=== PATIENT | male | born 1950 | race Caucasian/White ===

== ENCOUNTER 2019-09-22 14:03 | Inpatient (IN) | payer MEDICARE, BC ==
--- NOTE | 2019-09-22 14:53 | ED ---
Arrhythmia/Palpitations HPI - General Chief Complaint: Arrhythmia/Palpitations Stated Complaint: Irregular heartbeat Time Seen by Provider: 09/22/19 14:11 Source: patient, EMS, RN notes reviewed, old records reviewed Mode of arrival: EMS Limitations: no limitations - History of Present Illness Initial Comments: Patient 69-year-old male as a transfer from [facility]. Patient was emergently seeing at his PCPs office today for gallbladder pain,, Patient a rapid heart rate. Patient had an EKG at that time which showed likely atrial flutter and heart rate of 160 bpm. Patient reports that he was having some nausea and heartburn for a few months. Patient reports that he has no palpitations chest pain or pressure. He reports that while [facility] also he was placed on IV drip of Cardizem drip and placed on heparin for findings and elevated troponin. Patient's troponin was 0.049. Patient denies any shortness of breath. Patient's production tester is Dr. Farah. - Related Data Home Medications Medication Instructions Recorded Confirmed Apremilast [Otezla] 30 mg PO BID 09/22/19 09/22/19 Aspirin 325 mg PO DAILY 09/22/19 09/22/19 Atorvastatin Calcium [Lipitor] 80 mg PO DAILY 09/22/19 09/22/19 Dapagliflozin Propanediol [Farxiga] 5 mg PO DAILY 09/22/19 09/22/19 Gemfibrozil [Lopid] 600 mg PO AC-BID 09/22/19 09/22/19 Ibuprofen [Motrin] 800 mg PO TID 09/22/19 09/22/19 Insulin Aspart [NovoLOG Flexpen] See Protocol SQ ACHS 09/22/19 09/22/19 Insulin Degludec [Tresiba] 50 units SQ HS 09/22/19 09/22/19 Lisinopril [Zestril] 5 mg PO HS 09/22/19 09/22/19 Metoprolol Tartrate [Lopressor] 25 mg PO BID 09/22/19 09/22/19 metFORMIN HCL 1,000 mg PO BID 09/22/19 09/22/19 Allergies Allergy/AdvReac Type Severity Reaction Status Date / Time ciprofloxacin [From Cipro] Allergy Rash/Hives Verified 09/22/19 14:39 Review of Systems ROS Statement: Those systems with pertinent positive or pertinent negative responses have been documented in the HPI. ROS Other: All systems not noted in ROS Statement are negative. Past Medical History Past Medical History: Diabetes Mellitus, Hypertension, Myocardial Infarction ([place]), Osteoarthritis (OA), Skin Disorder Additional Past Medical History / Comment(s): Psorasis. History of Any Multi-Drug Resistant Organisms: None Reported Past Surgical History: Heart Catheterization With Stent, Hernia Repair, Joint Replacement, Orthopedic Surgery Smoking Status: Former smoker Past Alcohol Use History: Occasional Past Drug Use History: None Reported General Exam - General Exam Comments Initial Comments: Pleasant alert and oriented 69-year-old male. No distress. Limitations: no limitations General appearance: alert, in no apparent distress Head exam: Present: atraumatic, normocephalic, normal inspection Eye exam: Present: normal appearance, PERRL, EOMI. Absent: scleral icterus, conjunctival injection, periorbital swelling ENT exam: Present: normal exam, mucous membranes moist Neck exam: Present: normal inspection. Absent: tenderness, meningismus, lymphadenopathy Respiratory exam: Present: normal lung sounds bilaterally. Absent: respiratory distress, wheezes, rales, rhonchi, stridor Cardiovascular Exam: Present: regular rate, normal rhythm, normal heart sounds. Absent: systolic murmur, diastolic murmur, rubs, gallop, clicks Extremities exam: Present: normal inspection, full ROM, normal capillary refill. Absent: tenderness, pedal edema, joint swelling, calf tenderness Back exam: Present: normal inspection Neurological exam: Present: alert, oriented X3, CN II-XII intact Psychiatric exam: Present: normal affect, normal mood Course Vital Signs 09/22/19 09/22/19 14:06 14:28 Temperature 97.4 F L Pulse Rate 54 L 108 H Respiratory 18 Rate Blood Pressure 113/67 O2 Sat by Pulse 98 Oximetry - Reevaluation(s) Reevaluation #1: 09/22/19 14:52 Discussed the case with Eulalia Huerta NP and Dr. Farah evaluated Patient at bedside at this time. Medical Decision Making - Medical Decision Making This is a 69-year-old male presents emergency Department stay for transfer [facility] after being found in a flutter. 160. He was also elevated troponin 0.049. Patient was placed on Cardizem drip and heparin drip. Patient case was discussed at bedside with Dr. Wong was urged by Patient. Planning cardiac cath tomorrow. - Lab Data Result diagrams: 09/22/19 15:18 Lab Results 09/22/19 Range/Units 15:18 WBC 8.4 (3.8-10.6) k/uL RBC 5.38 (4.30-5.90) m/uL Hgb 16.4 (13.0-17.5) gm/dL Hct 48.8 (39.0-53.0) % MCV 90.7 (80.0-100.0) fL MCH 30.5 (25.0-35.0) pg MCHC 33.6 (31.0-37.0) g/dL RDW 13.9 (11.5-15.5) % Plt Count 196 (150-450) k/uL Neutrophils % 71 % Lymphocytes % 19 % Monocytes % 5 % Eosinophils % 1 % Basophils % 1 % Neutrophils # 6.0 (1.3-7.7) k/uL Lymphocytes # 1.6 (1.0-4.8) k/uL Monocytes # 0.4 (0-1.0) k/uL Eosinophils # 0.1 (0-0.7) k/uL Basophils # 0.1 (0-0.2) k/uL 09/22/19 15:36 EKG shows atrial flutter with come peeling junctional pacemaker with premature ventricular delay. 2 of Remeron consider lateral ischemia. Abnormal EKG noted. Ventricular rate 85 bpm. MT interval is undetected. She catholic is 78 ms. - Radiology Data Radiology results: report reviewed (Patient's [facility] chest x-ray report shows accentuation of interstitial markings in both lung bases indicative of interstitial edema and a consultation changes. Follow-up changes recommended. Abrupt and administration of the left clavicle consistent with prior surgical intervention.Findings compared old exam. X-rays of left shoulder junk be performed for further evaluation.) Disposition Clinical Impression: Atrial flutter, NSTEMI (non-ST elevation myocardial infarction) Disposition: ADMITTED IP TO THIS HOSP Condition: Stable Is patient prescribed a controlled substance at d/c from ED?: No Referrals: Danny Fernández MD [Primary Care Provider] - 1-2 days Time of Disposition: 15:39
[2019-09-22] MEDS ORDERED: HEPARIN SODIUM,PORCINE 5,000 UNIT/ML 1 ML VIAL IV PRN (15:14)
[2019-09-22] MEDS ORDERED: HEPARIN SOD,PORK IN 0.45% NACL 25,000 UNIT in 0.45% NACL 1 250ML.BAG IV SCH (15:15)
[2019-09-22] MEDS ORDERED: ASPIRIN 81 MG PO STA (15:22)
--- NOTE | 2019-09-22 15:22 | P.CRDCN ---
History of Present Illness Consult date: 09/22/19 Requesting physician: Phillip Urbina Chief complaint: Heartburn History of present illness: This is a pleasant 69-year-old gentleman who follows regularly with Dr. Wong in the office. He has history of hypertension, hyperlipidemia, diabetes, prior stenting of the RCA in 2010 at which time the patient was experiencing episodes of diaphoresis. He states that recently he's been getting these spells where he feels quite diaphoretic and he is also been getting symptoms that reminded him of heartburn. He went to see his primary care doctor because of the heartburn, thinking it may be related to his gallbladder. Underwent an EKG while he was there, was found to be in atrial flutter with rapid ventricular response. Patient also had some associated nausea. At [facility] patient was initiated on IV Cardizem and IV heparin drips. Chest x-ray was performed there which showed attenuation of interstitial markings in both lungs indicative of interstitial edema and decompensation changes. Initial EKG performed there showed atrial flutter with rapid ventricular response, at the time of my examination. The emergency room patient is currently in atrial fibrillation with a heart rate in the 90s. His IV Cardizem and IV heparin on arrival to the emergency room were discontinued, and she spoke with the PDA, advising those to be resumed. Laboratory data from [facility], white blood cell count 7.4, hemoglobin 17.1, platelet count 189. Initial troponin there was 0.049, TSH 2.3, sodium 140, potassium 3.8, chloride 106, CO2 22, BUN 17 and creatinine 0.7. AST 20, ALT 21, alk phos 80, total bilirubin 0.5, albumin 4.3. At the time of my examination, patient actually feels well, he denies any palpitations, no chest discomfort or heartburn at present, no dizziness or lightheadedness. His breathing is overall stable and at this present time he is not diaphoretic. Past Medical History Past Medical History: Diabetes Mellitus, Hypertension, Myocardial Infarction ([place]), Osteoarthritis (OA), Skin Disorder Additional Past Medical History / Comment(s): Psorasis. History of Any Multi-Drug Resistant Organisms: None Reported Past Surgical History: Heart Catheterization With Stent, Hernia Repair, Joint Replacement, Orthopedic Surgery Smoking Status: Former smoker Past Alcohol Use History: Occasional Past Drug Use History: None Reported Medications and Allergies Home Medications Medication Instructions Recorded Confirmed Type Apremilast [Otezla] 30 mg PO BID 09/22/19 09/22/19 History Aspirin 325 mg PO DAILY 09/22/19 09/22/19 History Atorvastatin Calcium [Lipitor] 80 mg PO DAILY 09/22/19 09/22/19 History Dapagliflozin Propanediol [Farxiga] 5 mg PO DAILY 09/22/19 09/22/19 History Gemfibrozil [Lopid] 600 mg PO AC-BID 09/22/19 09/22/19 History Ibuprofen [Motrin] 800 mg PO TID 09/22/19 09/22/19 History Insulin Aspart [NovoLOG Flexpen] See Protocol SQ ACHS 09/22/19 09/22/19 History Insulin Degludec [Tresiba] 50 units SQ HS 09/22/19 09/22/19 History Lisinopril [Zestril] 5 mg PO HS 09/22/19 09/22/19 History Metoprolol Tartrate [Lopressor] 25 mg PO BID 09/22/19 09/22/19 History metFORMIN HCL 1,000 mg PO BID 09/22/19 09/22/19 History Allergies Allergy/AdvReac Type Severity Reaction Status Date / Time ciprofloxacin [From Cipro] Allergy Rash/Hives Verified 09/22/19 14:39 Physical Exam Vitals: Vital Signs Temp Pulse Resp BP Pulse Ox 09/22/19 14:28 108 H 09/22/19 14:06 97.4 F L 54 L 18 113/67 98 Intake and Output 09/22/19 09/22/19 09/22/19 06:59 14:59 22:59 Other: Weight 95.254 kg PHYSICAL EXAMINATION: GENERAL: 69-year-old gentleman in no acute distress at the time of my examination HEENT: Head is atraumatic, normocephalic. Pupils equal, round. Sclera anicteric. Conjunctiva are clear. Mucous membranes of the mouth are moist. Neck is supple. There is no elevated jugular venous pressure. No carotid bruit is heard. HEART EXAMINATION: Heart S1, S2 normal. No murmur or gallop heard. CHEST EXAMINATION: Lungs are clear to auscultation and precussion. No chest wall tenderness is noted on palpation or with deep breathing. ABDOMEN: Soft, nontender. Bowel sounds are heard. No organomegaly noted. EXTREMITIES: 2+ peripheral pulses with no evidence of peripheral edema and no calf tenderness noted. NEUROLOGIC patient is awake, alert and oriented 3 . . Results Intake and Output 09/22/19 09/22/19 09/22/19 06:59 14:59 22:59 Other: Weight 95.254 kg Patient Weight 09/23/19 06:59 Weight 95.254 kg EKG Interpretations (text) Initial EKG shows atrial flutter with rapid ventricular response Subsequent EKG performed at [facility] showed A. fib with RVR. Assessment and Plan Plan: Assessment and plan #1 symptoms of recurrent heartburn with associated diaphoresis, rule out possible acute coronary syndrome. Initial troponin performed at [facility] came back abnormal at 0.049. #2 new-onset atrial flutter, typical, as well as atrial fibrillation with rapid ventricular response #3 hypertension #4 hyperlipidemia #5 diabetes #6 coronary artery disease with prior RCA stenting in 2010 #7 history of nicotine dependence Plan We will obtain an echocardiogram with Doppler study. We will also resume the IV heparin and Cardizem drips. Place the patient on a baby aspirin, Lipitor 80, li sinopril 5 mg daily, metoprolol, diabetic medications as at home may be resumed. We will also obtain 2 subsequent troponins, patient has been advised to undergo cardiac catheterization tomorrow with Dr. Wong. The risks and the benefits of the procedure were explained to the patient and his in detail and they're willing to proceed. Further recommendations to follow. DNP note has been reviewed, I agree with a documented findings and plan of care. Patient was seen and examined.
[2019-09-22] MEDS ORDERED: NITROGLYCERIN SL TABS 0.4 MG TAB SUBLINGUAL PRN (15:25)
[2019-09-22] MEDS ORDERED: SODIUM CHLORIDE 0.9% 1,000 ML IV STA (15:25)
[2019-09-22] MEDS ORDERED: ATORVASTATIN 80 MG TAB PO STA (15:25)
[2019-09-22] MEDS ORDERED: ALPRAZolam 0.25 MG TAB PO PRN (15:25)
[2019-09-22] MEDS ORDERED: ASPIRIN 325 MG TAB PO STA (15:25)
[2019-09-22] MEDS ORDERED: ALPRAZolam 0.5 MG TAB PO PRN (15:25)
[2019-09-22 15:28] LABS: Basophils # (A) 0.1 k/uL (0-0.2); Basophils % (A) 1 %; Eosinophils # (A) 0.1 k/uL (0-0.7); Eosinophils % (A) 1 %; HCT 48.8 % (39.0-53.0); HGB 16.4 gm/dL (13.0-17.5); Lymphocytes # (A) 1.6 k/uL (1.0-4.8); Lymphocytes % (A) 19 %; MCH 30.5 pg (25.0-35.0); MCHC 33.6 g/dL (31.0-37.0); MCV 90.7 fL (80.0-100.0); Mean Platelet Volume 7.8; Monocytes # (A) 0.4 k/uL (0-1.0); Monocytes % (A) 5 %; Neutrophils % (A) 71 %; Platelet Count 196 k/uL (150-450); RBC 5.38 m/uL (4.30-5.90); RDW 13.9 % (11.5-15.5); WBC 8.4 k/uL (3.8-10.6)
[2019-09-22 15:38] LABS: Partial Thromboplastin Time 25.7 sec (22.0-30.0); Prothrombin Time 10.8 sec (9.0-12.0)
[2019-09-22] MEDS ORDERED: NALOXONE 0.4 MG/ML 1 ML VIAL IV PRN (15:40)
[2019-09-22] MEDS ORDERED: ACETAMINOPHEN TAB 325 MG TAB PO PRN (15:40)
[2019-09-22] MEDS ORDERED: IBUPROFEN 400 MG TAB PO PRN (15:40)
[2019-09-22] MEDS ORDERED: ONDANSETRON 4 MG/2 ML VIAL IVP PRN (15:40)
[2019-09-22 15:46] LABS: ALT 28 U/L (21-72); AST 28 U/L (17-59); African American GFR (CKD) >90 (>60 ml/min/1.73 sqM); Albumin 4.1 g/dL (3.5-5.0); Alkaline Phosphatase 61 U/L (38-126); Anion Gap 11 mmol/L; Blood Urea Nitrogen 16 mg/dL (9-20); Calcium 9.4 mg/dL (8.4-10.2); Carbon Dioxide 20 mmol/L (22-30); Chloride 110 mmol/L (98-107); Glucose 85 mg/dL (74-99); Magnesium 1.7 mg/dL (1.6-2.3); Potassium 4.6 mmol/L (3.5-5.1); Sodium 141 mmol/L (137-145); Total Bilirubin 0.7 mg/dL (0.2-1.3); Total Protein 7.2 g/dL (6.3-8.2)
[2019-09-22] MEDS: DILTIAZEM 125 MG in SODIUM CHLORIDE 0.9% 100 ML IV SCH (15:54)
[2019-09-22] MEDS: DILTIAZEM DRIP BOLUS FROM BAG 1 MG SOLN IV ONE ×2 (15:59→16:00)
--- NOTE | 2019-09-22 17:06 | XR ---
EXAMINATION TYPE: XR chest 2V DATE OF EXAM: 09/22/2019 COMPARISON: Today HISTORY: Dysrhythmia TECHNIQUE: Frontal and lateral views of the chest are obtained. Heart and mediastinum are normal. Lungs are clear of consolidation. There are no hilar masses. There is no pleural effusion. Bony thorax is intact. There are chest leads. IMPRESSION: Normal chest. There is clearing of the minimal pulmonary interstitial edema compared to last exam.
[2019-09-22] MEDS: SODIUM CHLORIDE 0.9% 1,000 ML IV SCH (20:01)
[2019-09-22 20:17] VITALS: BMI 31.8
[2019-09-22 20:19] LABS: Glucose,Whole Blood 185 mg/dL (75-99)
[2019-09-22] MEDS: METOPROLOL TARTRATE 25 MG TAB PO SCH (21:50)
[2019-09-23] MEDS: DILTIAZEM 125 MG in SODIUM CHLORIDE 0.9% 100 ML IV SCH (03:45)
[2019-09-23] MEDS ORDERED: ATORVASTATIN 80 MG TAB PO STA (06:00)
[2019-09-23] MEDS ORDERED: ASPIRIN 325 MG TAB PO STA (06:00)
[2019-09-23] MEDS: LISINOPRIL 5 MG TAB PO SCH (06:10)
[2019-09-23] MEDS: METOPROLOL TARTRATE 25 MG TAB PO SCH ×2 (06:10→19:59)
[2019-09-23 06:12] LABS: Glucose,Whole Blood 122 mg/dL (75-99)
[2019-09-23] MEDS ORDERED: LIDOCAINE 1% INJ 10MG/ML (20 ML MDV) ONE (08:19)
[2019-09-23] MEDS ORDERED: IV FLUID CONTINUATION 1,000 ML IV ONE (08:45)
[2019-09-23] MEDS: MIDAZOLAM 2 MG/2 ML VIAL IVP ONE ×2 (08:53→08:59)
[2019-09-23] MEDS ORDERED: LIDOCAINE 1% INJ 10MG/ML (20 ML MDV) SQ ONE (08:59)
[2019-09-23] MEDS ORDERED: PANTOPRAZOLE 40 MG/10 ML VIAL IV SCH (09:00)
[2019-09-23] MEDS ORDERED: SODIUM CHLORIDE 0.9% 1,000 ML IV ONE (09:01)
[2019-09-23] MEDS ORDERED: fentaNYL (PF) 50 MCG/ML 2 ML AMP ONE (09:05)
[2019-09-23] MEDS ORDERED: RX INFO: IV CONTRAST WAS GIVEN 1 EACH MISC MISCELLANE PRN (09:18)
[2019-09-23] MEDS ORDERED: IOPAMIDOL-370 125ML BTL INJ ONE (09:25)
[2019-09-23] MEDS: MORPHINE SULFATE 4 MG/ML SYRINGE IV PRN ×2 (10:35→14:17)
--- NOTE | 2019-09-23 11:38 | ECHOF ---
Referral Reason:chest pain MEASUREMENTS -------- HEIGHT: 172.7 cm WEIGHT: 95.7 kg BP: 121/79 RVIDd: 3.4 cm (< 3.3) IVSd: 1.3 cm (0.6 - 1.1) LVIDd: 4.2 cm (3.9 - 5.3) LVPWd: 1.2 cm (0.6 - 1.1) IVSs: 1.8 cm LVIDs: 2.9 cm LVPWs: 1.7 cm LA Diam: 3.7 cm (2.7 - 3.8) LAESV Index (A-L): 39.39 ml/m Ao Diam: 3.3 cm (2.0 - 3.7) AV Cusp: 2.2 cm (1.5 - 2.6) MV E Armando: 1.17 m/s MV DecT: 147 ms MV A Armando: 0.52 m/s MV E/A Ratio: 2.24 FINDINGS -------- Sinus rhythm. This was a technically adequate study. The left ventricular size is normal. There is mild concentric left ventricular hypertrophy. Overa ll left ventricular systolic function is normal with, an EF between 60 - 65 %. The right ventricle is mildly enlarged. LA is moderately dilated 34-39 ml/m2 The right atrium is normal in size. Interatrial and interventricular septum intact. Mild mitral annular calcification present. There is trace mitral regurgitation. Trace tricuspid regurgitation present. The pulmonic valve was not well visualized. The aortic root size is normal. Normal inferior vena cava with normal inspiratory collapse consistent with estimated right atrial pre ssure of 5 mmHg. There is no pericardial effusion. CONCLUSIONS -------- 1. Sinus rhythm. 2. This was a technically adequate study. 3. The left ventricular size is normal. 4. There is mild concentric left ventricular hypertrophy. 5. Overall left ventricular systolic function is normal with, an EF between 60 - 65 %. 6. The right ventricle is mildly enlarged. 7. LA is moderately dilated 34-39 ml/m2 8. The right atrium is normal in size. 9. Interatrial and interventricular septum intact. 10. Mild mitral annular calcification present. 11. There is trace mitral regurgitation. 12. Trace tricuspid regurgitation present. 13. The pulmonic valve was not well visualized. 14. The aortic root size is normal. 15. Normal inferior vena cava with normal inspiratory collapse consistent with estimated right atrial pressure of 5 mmHg. 16. There is no pericardial effusion. ER RN: Esthela Toscano RDCS
[2019-09-23 11:56] LABS: Glucose,Whole Blood 173 mg/dL (75-99)
--- NOTE | 2019-09-23 11:58 | CC ---
CARDIAC CATHETERIZATION REPORT INDICATION: Non ST-segment elevation CA. PROCEDURE NOTE: After obtaining informed consent, left heart catheterization, coronary angiogram are performed via the right femoral artery using standard Mario catheters. Patient tolerated the procedure well without any obvious immediate complications. A femoral angiogram was performed and Angio-Seal was deployed for hemostasis. The patient received moderate conscious sedation. Total sedation time was 16 minutes. The patient had prior angioplasty of the right coronary artery. FINDINGS: 1. HEMODYNAMICS: Left ventricular end-diastolic pressure is 8 to 12 mm. There is no significant gradient across the aortic valve. 2. LEFT VENTRICULOGRAM: Left ventriculogram was not performed. 3. ANGIOGRAPHIC DATA. RIGHT CORONARY ARTERY: Right coronary artery is a large dominant vessel that shows patent stent within the mid to distal right coronary artery. Proximal right coronary artery shows an atherosclerotic plaque in the ostial portion and also at the junction of proximal and middle third of the right coronary artery. At its worst it seems to be a 40% stenosis. Left main coronary artery has an atherosclerotic plaque, but does not seem significant. There is no ventricularization of the pressure wave pattern and it does not seem significant, divides into LAD and circumflex coronary artery. LAD shows a mild atherosclerotic plaque in its proximal portion and there is a lesion in the ostial portion of the diagonal branch. This seems unchanged compared to prior cardiac catheterization. Circumflex coronary artery is a nondominant vessel. There is a 40%-50% atherosclerotic plaque in its ostial portion. CONCLUSION: Mild nonobstructive coronary artery disease with patent stent within the right coronary artery. PLAN: Patient's management is going to be with risk factor modification. The elevated troponin could be related to supply demand mismatch. Will start the patient on oral anticoagulant and discharge him home later, hopefully this evening if not tomorrow. MMODL / IJN: [id number] /
--- NOTE | 2019-09-23 11:58 | LTR ---
DATE OF SERVICE: 09/23/2919 RE: Cayetano Nunez Dear Dr. Fernández: I performed cardiac catheterization on Cayetano Nunez, a detailed catheterization noted has been forwarded for your records. The patient presented to us with new onset atrial fibrillation with mild elevation in troponin. Cardiac catheterization did not reveal significant obstructive CAD and he did not require any further revascularization at this time. Thank you for giving me the privilege to participate with this pleasant gentleman. Sincerely, MD BALAJI Vieira / GLENN: [id number] /
--- NOTE | 2019-09-23 13:33 | CDI ---
Documentation Clarification Form Date: 09/23/2019 1:27:52 PM From: Terra RizzoOlmsteadNASREEN lou, CCDS Admit Date: 09/22/2019 3:27:00 PM Patient Name: Cayetano Nunez Visit Number: [id number] Discharge Date: ATTENTION: The Clinical Documentation Specialists (CDI) and [facility] Coding Staff appreciate your assistance in clarifying documentation. Please respond to the clarification below the line at the bottom and electronically sign. The CDI & [facility] Coding staff will review the response and follow-up if needed. Please note: Queries are made part of the Legal Health Record. If you have any questions, please contact the author of this message via ITS. Dr. Abram Farah: Atrial Fibrillation is documented in the Cardiology consult without further specificity, also documented in the cardiology letter to patient's PCP as new onset atrial fibrillation. History/Risk Factors: CAD, Hypertension, Hyperlipidemia, DM II, CAD w/prior RCA stenting, permanent pacemaker & former smoker. Clinical Indicators: Presented with recurrent heartburn & associated diaphoresis, transferred from [facility] to rule out ACS. Diagnosed with CAD with patent stent to RCA per heart catheterization & typical atrial flutter with new onset atrial fibrillation. EKG/telemetry: R 85 Atrial fibrillation with competing junctional pacemaker with PVCs. Treatment: IV Heparin & IV Cardizem drips, LHC w/no intervention, ECHO, baby aspirin, started anticoagulant. In your professional opinion, can you please clarify the type of Atrial Fibrillation, if known? Paroxysmal Persistent Other, please specify Unable to determine (Last Revision: February 2018) MTDD
--- NOTE | 2019-09-23 15:52 | P.HPIM ---
History of Present Illness Patient is a pleasant 69-year-old gentleman came in the with complains of epigastric burning sensation epigastric abdominal discomfort has been going on on and off for last 2 days. Patient had a stent to RCA in the past patient has minimally labored elevated troponin because of which etiology valid the patient that concern about the non-ST elevation microinfarction patient underwent cardiac catheterization which did not show any significant atherosclerotic coronary close disease. Patient also had atrial flutter because of which his PCP has sent the patient from the clinic to here. Patient is presently rate controlled surgery and initiated on anticoagulation. Cardizem was discontinued patient was initially on Cardizem patient's EF is 60-60% patient is not in heart failure Review of Systems REVIEW OF SYSTEMS: CONSTITUTIONAL: No fever, no malaise, no fatigue. HEENT: No recent visual problems or hearing problems. Denied any sore throat. CARDIOVASCULAR: No chest pain, orthopnea, PND, no palpitations, no syncope. PULMONARY: No shortness of breath, no cough, no hemoptysis. GASTROINTESTINAL: No diarrhea, no nausea, no vomiting. NEUROLOGICAL: No headaches, no weakness, no numbness. HEMATOLOGICAL: Denies any bleeding or petechiae. GENITOURINARY: Denies any burning micturition, frequency, or urgency. MUSCULOSKELETAL/RHEUMATOLOGICAL: Denies any joint pain, swelling, or any muscle pain. ENDOCRINE: Denies any polyuria or polydipsia. The rest of the 14-point review of systems is negative. Past Medical History Past Medical History: Diabetes Mellitus, Hypertension, Myocardial Infarction (MS), Osteoarthritis (OA), Skin Disorder Additional Past Medical History / Comment(s): Psorasis. Last Myocardial Infarction Date:: 2008 History of Any Multi-Drug Resistant Organisms: None Reported Past Surgical History: Heart Catheterization With Stent, Hernia Repair, Joint Replacement, Orthopedic Surgery Date of Last Stent Placement:: 2008 Smoking Status: Current some day smoker Medications and Allergies Home Medications Medication Instructions Recorded Confirmed Type Apremilast [Otezla] 30 mg PO BID 09/22/19 09/22/19 History Atorvastatin Calcium [Lipitor] 80 mg PO DAILY 09/22/19 09/22/19 History Dapagliflozin Propanediol [Farxiga] 5 mg PO DAILY 09/22/19 09/22/19 History Gemfibrozil [Lopid] 600 mg PO AC-BID 09/22/19 09/22/19 History Insulin Aspart [NovoLOG Flexpen] See Protocol SQ ACHS 09/22/19 09/22/19 History Insulin Degludec [Tresiba] 50 units SQ HS 09/22/19 09/22/19 History Lisinopril [Zestril] 5 mg PO HS 09/22/19 09/22/19 History Metoprolol Tartrate [Lopressor] 25 mg PO BID 09/22/19 09/22/19 History metFORMIN HCL 1,000 mg PO BID 09/22/19 09/22/19 History Apixaban [Eliquis] 5 mg PO BID #60 tab 09/23/19 Rx Aspirin 81 mg PO DAILY #30 chew 09/23/19 Rx Omeprazole [PriLOSEC] 40 mg PO AC-BRKFST #14 capsule. 09/23/19 Rx Allergies Allergy/AdvReac Type Severity Reaction Status Date / Time ciprofloxacin [From Cipro] Allergy Rash/Hives Verified 09/22/19 14:39 Physical Exam Vitals: Vital Signs Temp Pulse Pulse Resp BP BP Pulse Ox 09/23/19 13:30 90 16 111/74 95 09/23/19 12:30 86 16 116/68 95 09/23/19 11:30 90 16 106/76 09/23/19 11:00 87 16 107/69 95 09/23/19 10:30 90 118/85 09/23/19 10:15 92 16 111/68 91 L 09/23/19 10:00 87 18 116/69 94 L 09/23/19 09:45 87 16 119/81 93 L 09/23/19 04:00 86 18 121/79 98 09/23/19 03:36 87 18 09/22/19 22:53 87 18 116/75 97 09/22/19 20:11 98.2 F 92 18 133/81 96 09/22/19 20:01 82 09/22/19 18:06 111 H 18 118/73 95 09/22/19 16:17 105 H 09/22/19 16:15 124 H 09/22/19 15:57 163 H 18 113/76 97 Intake and Output 09/23/19 09/23/19 09/23/19 06:59 14:59 22:59 Intake Total 445 Output Total 400 Balance 45 Intake: IV 75 Intake, IV Titration 250 Amount Sodium Chloride 0.9% 1, 250 000 ml @ 50 mls/hr IV . Q20H STA Rx#:[id number] Oral 120 Output: Urine 400 Other: Voiding Method Urinal # Voids 1 2 Weight 96.1 kg PHYSICAL EXAMINATION: GENERAL: The patient is alert and oriented x3, not in any acute distress. Well developed, well nourished. HEENT: Pupils are round and equally reacting to light. EOMI. No scleral icterus. No conjunctival pallor. Normocephalic, atraumatic. No pharyngeal erythema. No thyromegaly. CARDIOVASCULAR: S1 and S2 present. No murmurs, rubs, or gallops. PULMONARY: Chest is clear to auscultation, no wheezing or crackles. ABDOMEN: Soft, nontender, nondistended, normoactive bowel sounds. No palpable organomegaly. MUSCULOSKELETAL: No joint swelling or deformity. EXTREMITIES: No cyanosis, clubbing, or pedal edema. NEUROLOGICAL: Gross neurological examination did not reveal any focal deficits. SKIN: No rashes. Results CBC & Chem 7: 09/22/19 15:18 09/22/19 15:18 Labs: Abnormal Lab Results - Last 24 Hours (Table) 09/22/19 09/22/19 09/22/19 Range/Units 15:18 15:18 20:17 APTT (22.0-30.0) sec Chloride 110 H (98-107) mmol/L Carbon Dioxide 20 L (22-30) mmol/L Creatinine 0.62 L (0.66-1.25) mg/dL POC Glucose (mg/dL) 185 H (75-99) mg/dL Troponin I 0.054 H* (0.000-0.034) ng/mL 09/22/19 09/22/19 09/23/19 Range/Units 21:49 21:49 03:55 APTT 30.1 H (22.0-30.0) sec Chloride (98-107) mmol/L Carbon Dioxide (22-30) mmol/L Creatinine (0.66-1.25) mg/dL POC Glucose (mg/dL) (75-99) mg/dL Troponin I 0.066 H* 0.078 H* (0.000-0.034) ng/mL 09/23/19 09/23/19 09/23/19 Range/Units 03:55 06:10 11:54 APTT 55.4 H (22.0-30.0) sec Chloride (98-107) mmol/L Carbon Dioxide (22-30) mmol/L Creatinine (0.66-1.25) mg/dL POC Glucose (mg/dL) 122 H 173 H (75-99) mg/dL Troponin I (0.000-0.034) ng/mL Thrombosis Risk Factor Assmnt - Choose All That Apply Any of the Below Risk Factors Present?: Yes Each Factor Represents 1 point: Obesity (BMI >25) Other Risk Factors: Yes Each Risk Factor Represents 2 Points: Age 61-74 years Thrombosis Risk Factor Assessment Total Risk Factor Score: 3 Thrombosis Risk Factor Assessment Level: Moderate Risk Assessment and Plan Plan: Epigastric abdominal discomfort: Probably secondary to gastritis or peptic ulcer disease patient is on Protonix patient will be discharged on Prilosec. As a concern about and Stamey the possibility of which is low. Patient underwent cardiac catheterization which did not show atherosclerotic coronary closes his #1 new-onset atrial fibrillation patient is will be on anticoagulation patient is presently rate controlled. Beta maría. -Type 2 diabetes mellitus patient will be resumed on his home regimen titrate as needed -Hypertension next and heparin hyperlipidemia -6 coronary artery disease with previous stenting to his RCA
[2019-09-23] MEDS: SODIUM CHLORIDE 0.9% 1,000 ML IV SCH (16:29)
[2019-09-23 17:09] LABS: Glucose,Whole Blood 188 mg/dL (75-99)
[2019-09-23] MEDS: APIXABAN 5 MG TAB PO SCH (19:59)
[2019-09-23 20:03] VITALS: RESP 18
[2019-09-23 20:15] LABS: Glucose,Whole Blood 195 mg/dL (75-99)
[2019-09-24 06:35] LABS: Glucose,Whole Blood 153 mg/dL (75-99)
[2019-09-24] MEDS: METOPROLOL TARTRATE 25 MG TAB PO SCH (07:49)
[2019-09-24] MEDS: LISINOPRIL 5 MG TAB PO SCH (07:49)
[2019-09-24] MEDS: APIXABAN 5 MG TAB PO SCH (07:50)
[2019-09-24 07:58] VITALS: BP 124/75; PULSE 89; TEMP 98.6
[2019-09-24] MEDS ORDERED: ASPIRIN 81 MG PO SCH (09:00)
[2019-09-24] MEDS ORDERED: PANTOPRAZOLE 40 MG TABLET PO SCH (09:00)
--- NOTE | 2019-09-24 11:41 | P.PN ---
Subjective Progress Note Date: 09/24/19 This is a pleasant 69-year-old gentleman who follows regularly with Dr. Wong in the office. He has history of hypertension, hyperlipidemia, diabetes, prior stenting of the RCA in 2010 at which time the patient was experiencing episodes of diaphoresis. He states that recently he's been getting these spells where he feels quite diaphoretic and he is also been getting symptoms that reminded him of heartburn. He went to see his primary care doctor because of the heartburn, thinking it may be related to his gallbladder. Underwent an EKG while he was there, was found to be in atrial flutter with rapid ventricular response. Patient also had some associated nausea. At [facility] patient was initiated on IV Cardizem and IV heparin drips. Chest x-ray was performed there which showed attenuation of interstitial markings in both lungs indicative of interstitial edema and decompensation changes. Initial EKG performed there showed atrial flutter with rapid ventricular response, at the time of my examination. The emergency room patient is currently in atrial fibrillation with a heart rate in the 90s. His IV Cardizem and IV heparin on arrival to the emergency room were discontinued, and she spoke with the PDA, advising those to be resumed. Laboratory data from [facility], white blood cell count 7.4, hemoglobin 17.1, platelet count 189. Initial troponin there was 0.049, TSH 2.3, sodium 140, potassium 3.8, chloride 106, CO2 22, BUN 17 and creatinine 0.7. AST 20, ALT 21, alk phos 80, total bilirubin 0.5, albumin 4.3. At the time of my examination, patient william mi feels well, he denies any palpitations, no chest discomfort or heartburn at present, no dizziness or lightheadedness. His breathing is overall stable and at this present time he is not diaphoretic. 09/24/2019 Patient was taken to the cardiac catheterization lab yesterday by Dr. Farah, cardiac cath revealed mild nonobstructive coronary artery disease with a patent stent in the RCA and medical therapy was advised. Patient was seen and examined this morning, denied any chest pain or difficulty in breathing. He's been up ambulating without any difficulty. He continues to be in atrial flutter, heart rate 70s to 80s, blood pressure 124/70. 95% on room air. Objective - Vital Signs Vital signs: Vital Signs Temp 98.6 F 09/24/19 07:54 Pulse 89 09/24/19 07:54 Resp 18 09/24/19 07:54 BP 124/75 09/24/19 07:54 Pulse Ox 95 09/24/19 07:54 Intake & Output 09/23/19 09/24/19 09/24/19 18:59 06:59 18:59 Intake Total 565 250 Output Total 400 Balance 165 250 Weight 96 kg Intake: IV 75 Intake, IV Titration 250 Amount Sodium Chloride 0.9% 1, 250 000 ml @ 50 mls/hr IV . Q20H STA Rx#:[id number] Oral 240 250 Output: Urine 400 Other: Voiding Method Urinal # Voids 2 1 - Exam PHYSICAL EXAMINATION: GENERAL: 69-year-old gentleman in no acute distress at the time of my examination HEENT: Head is atraumatic, normocephalic. Pupils equal, round. Sclera anicteric. Conjunctiva are clear. Mucous membranes of the mouth are moist. Neck is supple. There is no elevated jugular venous pressure. No carotid bruit is heard. HEART EXAMINATION: Heart S1, S2 irregularly irregular . No murmur or gallop heard. CHEST EXAMINATION: Lungs are clear to auscultation and precussion. No chest wall tenderness is noted on palpation or with deep breathing. ABDOMEN: Soft, nontender. Bowel sounds are heard. No organomegaly noted. EXTREMITIES: 2+ peripheral pulses with no evidence of peripheral edema and no calf tenderness noted. Right groin is soft, no evidence of any hematoma. NEUROLOGIC patient is awake, alert and oriented 3 . - Labs CBC & Chem 7: 09/22/19 15:18 09/22/19 15:18 Labs: Abnormal Lab Results - Last 24 Hours (Table) 09/23/19 09/23/19 09/23/19 Range/Units 11:54 16:51 20:14 POC Glucose (mg/dL) 173 H 188 H 195 H (75-99) mg/dL 09/24/19 Range/Units 06:33 POC Glucose (mg/dL) 153 H (75-99) mg/dL Assessment and Plan Plan: Assessment and plan #1 symptoms of recurrent heartburn with associated diaphoresis, rule out possible acute coronary syndrome. Initial troponin performed at [facility] came back abnormal at 0.049. #2 new-onset atrial flutter, typical, as well as atrial fibrillation with rapid ventricular response #3 hypertension #4 hyperlipidemia #5 diabetes #6 coronary artery disease with prior RCA stenting in 2010 #7 history of nicotine dependence Plan Echocardiogram with Doppler study revealed a normal left ventricular systolic function. Cardiac catheterization did not reveal any significant obstructive coronary artery disease and medical therapy was advised. From cardiology's per spective, the patient may be able to be discharged home. A follow-up appointment will be made in the office with Dr. Farah post discharge. DNP note has been reviewed, I agree with a documented findings and plan of care. Patient was seen and examined.
[2019-09-24 11:45] LABS: Glucose,Whole Blood 166 mg/dL (75-99)
--- NOTE | 2019-09-24 12:15 | P.DS ---
Providers Date of admission: 09/22/19 15:27 Attending physician: Sameer Orourke MD Consults: 09/22/19 15:40 Consult Physician Stat Consulting Provider: Abram Farah Consult Reason/Comments: NSTEMI Do you want consulting provider notified?: Yes Primary care physician: [facility] Course: 69-year-old gentleman came in the with complains of epigastric burning sensation epigastric abdominal discomfort has been going on on and off for last 2 days. Patient had a stent to RCA in the past patient has minimally labored elevated troponin because of which etiology valid the patient that concern about the non- ST elevation microinfarction patient underwent cardiac catheterization which did not show any significant atherosclerotic coronary close disease. Patient also had atrial flutter because of which his PCP has sent the patient from the clinic to here. Patient is presently rate controlled surgery and initiated on anticoagulation. Cardizem was discontinued patient was initially on Cardizem patient's EF is 60-60% patient is not in heart failure. 09/24/2019 Patient is chest pain-free patient to his heart rate controlled will be discharged today. PHYSICAL EXAMINATION: GENERAL: The patient is alert and oriented x3, not in any acute distress. Well developed, well nourished. HEENT: Pupils are round and equally reacting to light. EOMI. No scleral icterus. No conjunctival pallor. Normocephalic, atraumatic. No pharyngeal erythema. No thyromegaly. CARDIOVASCULAR: S1 and S2 present. No murmurs, rubs, or gallops. PULMONARY: Chest is clear to auscultation, no wheezing or crackles. ABDOMEN: Soft, nontender, nondistended, normoactive bowel sounds. No palpable organomegaly. MUSCULOSKELETAL: No joint swelling or deformity. EXTREMITIES: No cyanosis, clubbing, or pedal edema. NEUROLOGICAL: Gross neurological examination did not reveal any focal deficits. SKIN: No rashes. Assessment and Plan Plan: Epigastric abdominal discomfort: Probably secondary to gastritis or peptic ulcer disease patient is on Protonix patient will be discharged on Prilosec. had a cardiac catheterization which did not show any significant atherosclerotic occlusive disease in the coronaries #1 new-onset atrial fibrillation patient is presently rate controlled. Beta maría.patient was started on Eliquis is -Type 2 diabetes mellitus patient will be resumed on his home regimen titrate as needed -Hypertension hyperlipidemia -6 coronary artery disease with previous stenting to his RCA Patient Condition at Discharge: Stable Plan - Discharge Summary New Discharge Prescriptions: New Aspirin 81 mg PO DAILY #30 chew Apixaban [Eliquis] 5 mg PO BID #60 tab Omeprazole [PriLOSEC] 40 mg PO AC-BRKFST #14 capsule. Continue Metoprolol Tartrate [Lopressor] 25 mg PO BID Lisinopril [Zestril] 5 mg PO HS Atorvastatin Calcium [Lipitor] 80 mg PO DAILY Insulin Degludec [Tresiba] 50 units SQ HS Insulin Aspart [NovoLOG Flexpen] See Protocol SQ ACHS Gemfibrozil [Lopid] 600 mg PO AC-BID metFORMIN HCL 1,000 mg PO BID Dapagliflozin Propanediol [Farxiga] 5 mg PO DAILY Apremilast [Otezla] 30 mg PO BID Discontinued Ibuprofen [Motrin] 800 mg PO TID Aspirin 325 mg PO DAILY Discharge Medication List Apremilast [Otezla] 30 mg PO BID 09/22/19 [History] Atorvastatin Calcium [Lipitor] 80 mg PO DAILY 09/22/19 [History] Dapagliflozin Propanediol [Farxiga] 5 mg PO DAILY 09/22/19 [History] Gemfibrozil [Lopid] 600 mg PO AC-BID 09/22/19 [History] Insulin Aspart [NovoLOG Flexpen] See Protocol SQ ACHS 09/22/19 [History] Insulin Degludec [Tresiba] 50 units SQ HS 09/22/19 [History] Lisinopril [Zestril] 5 mg PO HS 09/22/19 [History] Metoprolol Tartrate [Lopressor] 25 mg PO BID 09/22/19 [History] metFORMIN HCL 1,000 mg PO BID 09/22/19 [History] Apixaban [Eliquis] 5 mg PO BID #60 tab 09/23/19 [Rx] Aspirin 81 mg PO DAILY #30 chew 09/23/19 [Rx] Omeprazole [PriLOSEC] 40 mg PO AC-BRKFST #14 capsule. 09/23/19 [Rx] Follow up Appointment(s)/Referral(s): Rhona Romero NPC [REFERRING] - 09/26/19 10:00 am (Sunday) Abram Farah MD [STAFF PHYSICIAN] - 09/30/19 3:45 pm (Sunday) Patient Instructions/Handouts: *Surgery [facility] - After Heart Catheterization - [place] Instructions, Atrial Flutter (DC), Heart Healthy Diet (DC), Safe Use of Anticoagulants (DC) Activity/Diet/Wound Care/Special Instructions: Theresa is covered $22 copay Discharge Disposition: HOME SELF-CARE
--- NOTE | 2019-09-26 07:52 | CDI ---
Documentation Clarification Form Date: 09/23/2019 1:27:00 PM From: Terra RizzoOlmsteadNASREEN lou, CCDS Admit Date: 09/22/2019 3:27:00 PM Patient Name: Cayetano Nunez Visit Number: [id number] Discharge Date: 09/24/2019 12:19:00 PM ATTENTION: The Clinical Documentation Specialists (CDI) and [facility] Coding Staff appreciate your assistance in clarifying documentation. Please respond to the clarification below the line at the bottom and electronically sign. The CDI & [facility] Coding staff will review the response and follow-up if needed. Please note: Queries are made part of the Legal Health Record. If you have any questions, please contact the author of this message via ITS. Dr. Abram Farah: Atrial Fibrillation is documented in the Cardiology consult without further specificity, also documented in the cardiology letter to patient's PCP as new onset atrial fibrillation. History/Risk Factors: CAD, Hypertension, Hyperlipidemia, DM II, CAD w/prior RCA stenting, permanent pacemaker & former smoker. Clinical Indicators: Presented with recurrent heartburn & associated diaphoresis, transferred from [facility] to rule out ACS. Diagnosed with CAD with patent stent to RCA per heart catheterization & typical atrial flutter with new onset atrial fibrillation. EKG/telemetry: R 85 Atrial fibrillation with competing junctional pacemaker with PVCs. Treatment: IV Heparin & IV Cardizem drips, LHC w/no intervention, ECHO, baby aspirin, started anticoagulant. In your professional opinion, can you please clarify the type of Atrial Fibrillation, if known? Paroxysmal Persistent Other, please specify Unable to determine (Last Revision: February 2018) MTDD
== END 2019-09-24 12:19 | disposition home or self-care (01) | DRG 287 ==
LOC: EC 14:03 → 3SCARD 15:27
PROVIDERS: ADMIT Internal Medicine; ATTEND Internal Medicine
PROC: B2111ZZ Fluoroscopy of Multiple Coronary Arteries using Low Osmolar Contrast (ICD-10-PCS; principal; 2019-09-23 07:30)
PROC: 4A023N7 Measurement of Cardiac Sampling and Pressure, Left Heart, Percutaneous Approach (ICD-10-PCS; principal; 2019-09-23 07:30)
DX: I48.91 Unspecified atrial fibrillation (principal); I24.8 Other forms of acute ischemic heart disease; I48.3 Typical atrial flutter; K29.70 Gastritis, unspecified, without bleeding; E11.9 Type 2 diabetes mellitus without complications; E78.5 Hyperlipidemia, unspecified; I25.10 Atherosclerotic heart disease of native coronary artery without angina pectoris; I10 Essential (primary) hypertension; M19.90 Unspecified osteoarthritis, unspecified site; L40.9 Psoriasis, unspecified; R79.89 Other specified abnormal findings of blood chemistry; F17.200 Nicotine dependence, unspecified, uncomplicated; K27.9 Peptic ulcer, site unspecified, unspecified as acute or chronic, without hemorrhage or perforation; Z88.1 Allergy status to other antibiotic agents; Z79.82 Long term (current) use of aspirin; Z79.01 Long term (current) use of anticoagulants; Z79.4 Long term (current) use of insulin; I25.2 Old myocardial infarction; Z95.5 Presence of coronary angioplasty implant and graft; Z98.890 Other specified postprocedural states; Z79.899 Other long term (current) drug therapy
CPT/HCPCS: 36415; 71046; 80053; 83735; 84484; 85025; 85610; 85730; 93005; 93306; 93458; 96365; 96366; 96376; 99285

== ENCOUNTER 2021-06-30 19:51 | Inpatient (IN) | payer MEDICARE, BC ==
--- NOTE | 2021-06-30 20:09 | ED ---
General Adult HPI - General Source: patient, RN notes reviewed, old records reviewed <Gagan Peterson - Last Filed: 06/30/21 19:59> <Yehuda Ceron - Last Filed: 06/30/21 22:56> - General Stated complaint: Chest Pain Time Seen by Provider: 06/30/21 19:51 - History of Present Illness Initial comments: This is a 71-year-old male who presents to the emergency department with a past medical history significant for atrial fibrillation and is on eliquis. Patient states when this this morning had a couple beers when he got back he was going to shower and all of a sudden he felt his heart pounding thought is given a pass out so eventually went to the emergency department with a found that his A. fib was having a rapid ventricular response at about 160 beats a minute. Patient denies any chest pain patient denies shortness of breath. 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 Patient's initial troponin was negative. Currently patient is symptom-free. (Gagan Peterson) - Related Data Home Medications Medication Instructions Recorded Confirmed Atorvastatin Calcium [Lipitor] 80 mg PO DAILY 09/22/19 06/30/21 Dapagliflozin Propanediol [Farxiga] 5 mg PO DAILY 09/22/19 06/30/21 Gemfibrozil [Lopid] 600 mg PO AC-BID 09/22/19 06/30/21 Insulin Aspart [NovoLOG Flexpen] See Protocol SQ ACHS PRN 09/22/19 06/30/21 Insulin Degludec [Tresiba] 50 units SQ HS 09/22/19 06/30/21 Metoprolol Tartrate [Lopressor] 25 mg PO BID 09/22/19 06/30/21 lisinopriL [Zestril] 5 mg PO DAILY 09/22/19 06/30/21 metFORMIN HCL [Glucophage] 1,000 mg PO BID 09/22/19 06/30/21 Adalimumab [Humira(Cf) Pen] 40 mg SQ Q14D 06/30/21 06/30/21 Previous Rx's Medication Instructions Recorded Apixaban [Eliquis] 5 mg PO BID #60 tab 09/23/19 Aspirin 81 mg PO DAILY #30 chew 09/23/19 Allergies Allergy/AdvReac Type Severity Reaction Status Date / Time ciprofloxacin [From Cipro] Allergy Rash/Hives Verified 06/30/21 20:55 Review of Systems ROS Other: All systems not noted in ROS Statement are negative. <Gagan Peterson - Last Filed: 06/30/21 19:59> ROS Other: All systems not noted in ROS Statement are negative. <SherileandroYehuda - Last Filed: 06/30/21 22:56> ROS Statement: Those systems with pertinent positive or pertinent negative responses have been documented in the HPI. Past Medical History Past Medical History: Diabetes Mellitus, Hypertension, Myocardial Infarction ([place]), Osteoarthritis (OA), Skin Disorder Additional Past Medical History / Comment(s): Psorasis. Last Myocardial Infarction Date:: 2008 History of Any Multi-Drug Resistant Organisms: None Reported Past Surgical History: Heart Catheterization With Stent, Hernia Repair, Joint Replacement, Orthopedic Surgery Date of Last Stent Placement:: 2008 Past Alcohol Use History: Occasional Past Drug Use History: None Reported <Gagan Peterson - Last Filed: 06/30/21 19:59> General Exam <Gagan Peterson - Last Filed: 06/30/21 19:59> - General Exam Comments Initial Comments: GENERAL: Patient is well-developed and well-nourished. Patient is nontoxic and well- hydrated and is in mild distress. ENT: Neck is soft and supple. No significant lymphadenopathy is noted. Oropharynx is clear. Moist mucous membranes. Neck has full range of motion without eliciting any pain. EYES: The sclera were anicteric and conjunctiva were pink and moist. Extraocular movements were intact and pupils were equal round and reactive to light. Eyelids were unremarkable. PULMONARY: Unlabored respirations. Good breath sounds bilaterally. No audible rales rhonchi or wheezing was noted. CARDIOVASCULAR: There is a regular rate and rhythm without any murmurs gallops or rubs. ABDOMEN: Soft and nontender with normal bowel sounds. SKIN: Skin is clear with no lesions or rashes and otherwise unremarkable. NEUROLOGIC: Patient is alert and oriented x3. Cranial nerves II through XII are grossly intact. Motor and sensory are also intact. Normal speech, volume and content. Symmetrical smile. MUSCULOSKELETAL: Normal extremities with adequate strength and full range of motion. LYMPHATICS: No significant lymphadenopathy is noted PSYCHIATRIC: Normal psychiatric evaluation. (Gagan Peterson) Course <Yehuda Ceron - Last Filed: 06/30/21 22:56> Vital Signs 06/30/21 06/30/21 06/30/21 19:51 20:00 21:00 Temperature 98.6 F Pulse Rate 69 103 H 109 H Respiratory 20 22 22 Rate Blood Pressure 103/70 94/69 97/71 O2 Sat by Pulse 97 97 97 Oximetry 06/30/21 22:00 Temperature Pulse Rate 74 Respiratory 20 Rate Blood Pressure 94/69 O2 Sat by Pulse 96 Oximetry - Reevaluation(s) Reevaluation #1: 06/30/21 22:56 I was asked to enter the admission orders for this patient, no other patient interaction (Yehuda Ceron) Medical Decision Making <Gagan Peterson - Last Filed: 06/30/21 19:59> - Medical Decision Making Spoke with Dr. Leone agreed to admit the patient admitted the patient wrote admitting orders. Yet EKG shows atrial for ablation with rapid ventricular response at 108 bpm cardiac 70 QT interval 3:30 QTC is 442. Patient's EKG shows no ST segment elevation or depression. (Gagan Peterson) - Lab Data Lab Results 06/30/21 Range/Units 20:07 Troponin I 0.039 H* (0.000-0.034) ng/mL Disposition Time of Disposition: 20:06 <Gagan Peterson - Last Filed: 06/30/21 19:59> <Yehuda Ceron - Last Filed: 06/30/21 22:56> Clinical Impression: Atrial fibrillation with RVR Disposition: ADMITTED IP TO THIS HOSP Referrals: Danny Fernández MD [Primary Care Provider] - 1-2 days
[2021-06-30] MEDS ORDERED: NITROGLYCERIN SL TABS 0.4 MG TAB SUBLINGUAL PRN (22:53)
[2021-07-01 06:22] LABS: Glucose,Whole Blood 117 mg/dL (75-99)
[2021-07-01] MEDS ORDERED: APIXABAN 5 MG TAB PO SCH (09:00)
[2021-07-01] MEDS ORDERED: ASPIRIN 325 MG TAB PO SCH (09:00)
[2021-07-01] MEDS: ACETAMINOPHEN TAB 325 MG TAB PO PRN ×2 (09:20→17:54)
[2021-07-01] MEDS: ASPIRIN 81 MG PO SCH (09:21)
[2021-07-01] MEDS: METOPROLOL TARTRATE 25 MG TAB PO SCH ×2 (09:21→20:10)
[2021-07-01] MEDS: ATORVASTATIN 80 MG TAB PO SCH (09:22)
[2021-07-01] MEDS ORDERED: ALPRAZolam 0.5 MG TAB PO PRN (10:48)
[2021-07-01] MEDS ORDERED: ALPRAZolam 0.25 MG TAB PO PRN (10:48)
[2021-07-01 11:40] LABS: Glucose,Whole Blood 144 mg/dL (75-99)
[2021-07-01 11:59] LABS: Chol/HDL Ratio 3.65
--- NOTE | 2021-07-01 12:23 | ECHOF ---
Referral Reason:LV function MEASUREMENTS -------- HEIGHT: 172.7 cm WEIGHT: 93.0 kg BP: 96/64 RVIDd: 3.6 cm (< 3.3) IVSd: 1.4 cm (0.6 - 1.1) LVIDd: 3.8 cm (3.9 - 5.3) LVPWd: 1.3 cm (0.6 - 1.1) IVSs: 1.8 cm LVIDs: 2.7 cm LVPWs: 1.6 cm LA Diam: 3.1 cm (2.7 - 3.8) LAESV Index (A-L): 21.34 ml/m Ao Diam: 3.5 cm (2.0 - 3.7) AV Cusp: 2.1 cm (1.5 - 2.6) MV EXCURSION: 13.883 mm (> 18.000) MV EF SLOPE: 47 mm/s (70 - 150) EPSS: 0.6 cm MV E Armando: 0.92 m/s MV DecT: 231 ms MV A Armando: 0.73 m/s MV E/A Ratio: 1.26 FINDINGS -------- Sinus rhythm. This was a technically adequate study. The left ventricular size is normal. There is moderate concentric left ventricular hypertrophy. O verall left ventricular systolic function is normal with, an EF between 55 - 60 %. The diastolic fi lling pattern is normal for the age of the patient 12.55. Sigmoid Septum The right ventricle is mildly enlarged. Normal LA size by volume 22+/-6 ml/m2. The right atrial size is normal. Lipomatous Hypertrophy of the atrial septum is present The aortic valve was not well visualized. Mild mitral annular calcification present. Mild mitral regurgitation is present. The tricuspid valve appears structurally normal. Unable to estimate RVSP due to inadequate TR jet s pectral doppler profile. The pulmonic valve was not well visualized. The aortic root size is normal. Normal inferior vena cava with normal inspiratory collapse consistent with estimated right atrial pre ssure of 5 mmHg. There is no pericardial effusion. CONCLUSIONS -------- 1. There is moderate concentric left ventricular hypertrophy. 2. Overall left ventricular systolic function is normal with, an EF between 55 - 60 %. 3. The right ventricle is mildly enlarged. 4. Normal LA size by volume 22+/-6 ml/m2. 5. Mild mitral regurgitation is present. 6. There is no pericardial effusion. CIRCLE SAW OPERATOR: Esthela Toscano RDCS
[2021-07-01] MEDS: FENOFIBRATE 160 MG TAB PO SCH (12:40)
[2021-07-01] MEDS: INSULIN ASPART (NovoLOG) 100 UNIT/ML VIAL SQ SCH ×3 (12:40→22:02)
[2021-07-01] MEDS: lisinopriL 5 MG TAB PO SCH (12:40)
[2021-07-01] MEDS: NON FORMULARY DRUG (Dapagliflozin Propanediol [Farxiga] 5 MG Tablet) PO SCH (12:41)
[2021-07-01] MEDS ORDERED: HEPARIN SODIUM 1,000 UN/ML (10ML VL) IV PRN (13:26)
--- NOTE | 2021-07-01 13:35 | P.CRDCN ---
History of Present Illness History of present illness: HISTORY OF PRESENTING ILLNESS This is a pleasant 71-year-old male past medical history significant for coronary artery disease s/p PCI RCA in 2010 in the setting of DC, atypical atrial flutter (on Eliquis), hypertension, type 2 diabetes, dyslipidemia. He follows in the office with Dr. Farah. We have been asked to see in consultation for atrial fibrillation with RVR. Patient transferred from [facility] for atrial fibrillation with RVR. Patient states that yesterday he had a normal morning, felt great, was going fishing with friends. He did have 3 beers and smoked a cigar. After fishing he got home and had an acute onset upper abdominal fluttering, diaphoresis, nausea. His palpitations did not radiate. He took a shower, proceeded to have acute onset lightheadedness. He laid down on the couch to relax. His symptoms continued and decided to go to the hospital. He presented to [facility]. His EKG revealed atrial fibrillation with RVR HR 159. Laboratory reviewed at [place], sodium 141, potassium 3.8, BUN 16, serum creatinine 0.6, troponin 0.018, magnesium 1.7, WBC 7.2, hemoglobin 17, platelets 155. Patient states when he was diagnosed with atrial fibrillation he had no symptoms. When he had his DC in 2010, his symptoms are very similar to what happened yesterday includin diaphoresis and nausea, he did not have any chest pain when he has DC in 2010. Patient is seen and examined by, no acute distress, he denies any further palpitations, shortness of breath, nausea, diaphoresis. He denies any chest pain. He spontaneously converted to sinus mechanism. He currently is maintaining sinus mechanism heart rate 60 to 70s. DIAGNOSTICS EKG reveals atrial fibrillation HR 108 Telemetry tracings indicate sinus mechanism HR 60-70s Laboratory reviewed, troponin trend 0.018, 0.03, 0.11, 0.13, triglycerides 135, LDL 42, HDL 26. Current home cardiac medications include lisinopril 5 mg daily, Toprol tartrate 25 mg twice a day, atorvastatin 80 mg daily, aspirin 81 mg daily, Eliquis 5 mg twice a day. Cardiac catheterization 2018- revealed mild non obstructive CAD, patent stent RCA Most recent echocardiogram 2019- EF 60-65% Echocardiogram today revealed EF 55-60%, RV is mildly enlarged, mild mitral regurgitation. REVIEW OF SYSTEMS At the time of my exam: CONSTITUTIONAL: Denies fever or chills. +diaphoresis CARDIOVASCULAR: +shortness of breath +palpitations, Denies chest pain, orthopnea, PND RESPIRATORY: Denies cough. GASTROINTESTINAL: Denies abdominal pain, diarrhea, constipation, nausea or vomiting. MUSCULOSKELETAL: Denies myalgias. NEUROLOGIC: Denies numbness, tingling, headacbe or weakness. ENDOCRINE: Denies fatigue, weight change, polydipsia or polyurina. GENITOURINARY: Denies burning, hematuria or urgency with micturation. HEMATOLOGIC: Denies history of anemia or bleeding. PHYSICAL EXAMINATION CONSTITUTIONAL: No apparent distress. HEENT: Head is normocephalic. Pupils are equal, round. Sclerae anicteric. Mucous membranes of the mouth are moist. No JVD. No carotid bruit. CHEST EXAMINATION: Lungs are clear to auscultation. No chest wall tenderness is noted on palpation or with deep breathing. HEART EXAMINATION: Regular rate and rhythm. S1, S2 heard. No murmurs, gallops or rub. ABDOMEN: Soft, nontender. Positive bowel sounds. EXTREMITIES: 2+ peripheral pulses, no lower extremity edema and no calf tenderness. SKIN: intact NEUROLOGIC EXAMINATION: Patient is awake, alert and oriented x3. ASSESSMENT Paroxysmal Atrial Fibrillation with rapid ventricular response -on Eliquis - currently in sinus mechanism Episode of nausea, diaphoresis, and palpitations Elevated troponin, concern for ischemia History of Atypical atrial flutter PLAN -2D echocardiogram obtain and reviewed -We recommend cardiac catheterization at this time. Due to patient and his Eliquis this morning we will hold his Eliquis, start a heparin drip. -Plan for cardiac catheterization Dr. Ibrahim tomorrow 07/02/2021 -NPO after midnight -I have discussed the risks, benefits and alternative therapies for the above- mentioned procedure and for both sedation/analgesia as well as necessary blood product administration, if indicated, as they pertain to this patient. The patient has indicated understanding and acceptance of the risks and procedures discussed. Questions have been answered appropriately and he is agreeable to move forward with the above-stated procedure. -Continue home cardiac medications -Further recommendations based on clinical course Nurse Practitioner note has been reviewed, I agree with a documented findings and plan of care. Patient was seen and examined. Past Medical History Past Medical History: Diabetes Mellitus, Hyperlipidemia, Hypertension, Myocardial Infarction (DC), Osteoarthritis (OA), Skin Disorder Additional Past Medical History / Comment(s): Psorasis. Last Myocardial Infarction Date:: 2008 History of Any Multi-Drug Resistant Organisms: None Reported Past Surgical History: Heart Catheterization With Stent, Hernia Repair, Joint Replacement, Orthopedic Surgery Past Anesthesia/Blood Transfusion Reactions: No Reported Reaction Date of Last Stent Placement:: 2008 Past Psychological History: No Psychological Hx Reported Smoking Status: Current some day smoker, Smoker, current status unknown Past Alcohol Use History: Occasional Past Drug Use History: None Reported - Past Family History Mother Family Medical History: Liver Disease Father Family Medical History: Coronary Artery Disease (CAD) Medications and Allergies Home Medications Medication Instructions Recorded Confirmed Type Atorvastatin Calcium [Lipitor] 80 mg PO DAILY 09/22/19 06/30/21 History Dapagliflozin Propanediol [Farxiga] 5 mg PO DAILY 09/22/19 06/30/21 History Gemfibrozil [Lopid] 600 mg PO AC-BID 09/22/19 06/30/21 History Insulin Aspart [NovoLOG Flexpen] See Protocol SQ ACHS PRN 09/22/19 06/30/21 History Insulin Degludec [Tresiba] 50 units SQ HS 09/22/19 06/30/21 History Metoprolol Tartrate [Lopressor] 25 mg PO BID 09/22/19 06/30/21 History lisinopriL [Zestril] 5 mg PO DAILY 09/22/19 06/30/21 History metFORMIN HCL [Glucophage] 1,000 mg PO BID 09/22/19 06/30/21 History Apixaban [Eliquis] 5 mg PO BID #60 tab 09/23/19 06/30/21 Rx Aspirin 81 mg PO DAILY #30 chew 09/23/19 06/30/21 Rx Adalimumab [Humira(Cf) Pen] 40 mg SQ Q14D 06/30/21 06/30/21 History Allergies Allergy/AdvReac Type Severity Reaction Status Date / Time ciprofloxacin [From Cipro] Allergy Rash/Hives Verified 06/30/21 20:55 Physical Exam Vitals: Vital Signs Temp Pulse Pulse Resp BP BP Pulse Ox 07/01/21 03:15 98.1 F 68 16 96/64 99 07/01/21 00:07 98.5 F 75 16 104/69 95 06/30/21 23:50 98.7 F 97 23 106/76 98 06/30/21 23:49 98.7 F 97 23 106/76 98 06/30/21 22:00 74 20 94/69 96 06/30/21 21:00 109 H 22 97/71 97 06/30/21 20:00 103 H 22 94/69 97 06/30/21 19:51 98.6 F 69 20 103/70 97 Intake and Output 06/30/21 07/01/21 07/01/21 22:59 06:59 14:59 Other: Weight 92.986 kg 93.4 kg Results Cardiac Enzymes 06/30/21 06/30/21 07/01/21 Range/Units 20:07 23:23 01:24 Troponin I 0.039 H* 0.112 H* 0.137 H* (0.000-0.034) ng/mL Current Medications Generic Name Dose Route Start Last Admin Trade Name Jenniffer PRN Reason Stop Dose Admin Aspirin 325 mg 07/01/21 09:00 Aspirin 325 Mg Tab PO DAILY JARED Nitroglycerin 0.4 mg 06/30/21 22:53 Nitroglycerin Sl Tabs 0.4 Mg Tab SUBLINGUAL Q5M PRN Chest Pain Intake and Output 06/30/21 07/01/21 07/01/21 22:59 06:59 14:59 Other: Weight 92.986 kg 93.4 kg
[2021-07-01 14:35] LABS: Basophils % (A) 0 %; Eosinophils # (A) 0.1 k/uL (0-0.7); Eosinophils % (A) 2 %; HCT 47.5 % (39.0-53.0); HGB 15.8 gm/dL (13.0-17.5); Lymphocytes # (A) 1.4 k/uL (1.0-4.8); Lymphocytes % (A) 29 %; MCH 32.6 pg (25.0-35.0); MCHC 33.4 g/dL (31.0-37.0); MCV 97.6 fL (80.0-100.0); Mean Platelet Volume 8.6; Monocytes # (A) 0.3 k/uL (0-1.0); Monocytes % (A) 7 %; Neutrophils # (A) 2.8 k/uL (1.3-7.7); Neutrophils % (A) 59 %; Platelet Count 153 k/uL (150-450); RBC 4.87 m/uL (4.30-5.90); RDW 14.5 % (11.5-15.5); WBC 4.7 k/uL (3.8-10.6)
[2021-07-01 14:41] LABS: INR 1.1 (<1.2); Partial Thromboplastin Time 22.5 sec (22.0-30.0); Prothrombin Time 11.4 sec (9.0-12.0)
[2021-07-01] MEDS: HEPARIN SOD,PORK IN 0.45% NACL 25,000 UNIT in 0.45% NACL 1 250ML.BAG IV SCH (15:44)
[2021-07-01 16:35] LABS: Glucose,Whole Blood 147 mg/dL (75-99)
--- NOTE | 2021-07-01 16:47 | P.HPIM ---
History of Present Illness H&P Date: 07/01/21 Chief Complaint: Perspiration History of presenting complaint: This is a 71-year-old patient, follows with Dr. Fernández. Chronic stable medical conditions include diabetes mellitus type 2, hyperlipidemia, hypertension, osteoarthritis,. Patient smokes about a pack or greater period of 2 weeks. Has known coronary artery disease with stent follows with [employer] Dr. Cherelle Wong. Patient yesterday morning 4:00 on top admin fishing with friends. Had his breakfast. Had to 3 beers. Came home. I was sitting down any protocol and IV sweat. Chest was pounding. Nausea. Today some burning sensation in the upper epigastrium. decided to bring him in. He also felt lightheaded and dizzy. Initially presented to [facility] varicose EKG showed atrial fibrillation with a rate in 150s. Potassium was 3.8. BUN 16, creatinine 0.6. Troponin 0.018. He has a known prior history of atrial fibrillation. Patient spontaneously went back into sinus rhythm. He has a prior stent of the RCA. Currently no chest pain. at the bedside. Normally fairly active. Review of systems: GEN.: Tired EYES: None HEENT: None NECK: None RESPIRATORY: As above CARDIOVASCULAR: [As above GASTROINTESTINAL: None GENITOURINARY: None MUSCULOSKELETAL: Joint pains LYMPHATICS: None HEMATOLOGICAL: None PSYCHIATRY: None NEUROLOGICAL: None Past medical history to include: Diabetes mellitus, hyperlipidemia, hypertension, osteoarthritis, acute VA, psoriasis, coronary artery disease stent in 2019 Social history: . Smokes about half a pack every week. Alcohol occasionally. Retired from being doing plowing Family history: Liver disease Physical examination: VITAL SIGNS: 97.5, 60, 16, 97/64, 97% room air GENERAL: BMI 31.3, sitting edge of the bed, awake. EYES: Pupils equal. Conjunctiva normal. HEENT: External appearance of nose and ears normal, oral cavity grossly normal. NECK: JVD not raised; masses not palpable. HEART: First and second heart sounds are normal; no edema. LUNGS: Respiratory rate normal; decreased breath sounds. MUSCULAR skeletal: Evidence of some OA ABDOMEN: Soft, nontender, liver spleen not palpable, no masses palpable. PSYCH: Alert and oriented x3; mood and affect normal. NEUROLOGICAL: Cranial nerves grossly intact; no facial asymmetry, power and sensation grossly intact. LYMPHATICS: No lymph nodes palpable in the axilla and neck INVESTIGATIONS, reviewed in the clinical context: WBC 4.7 hemoglobin 13.8 platelets 153 Troponin I 0.13, 0.11, 0.039 LDL 42 EKG tracing personally reviewed by me-atrial fibrillation with a rate of 108 done at our hospital 2-D echocardiogram: EF 55-60%. Assessment and plan: -Probable acute non-Q wave VA. This is a patient with known coronary artery disease with a prior stent. Smokes intermittently. Presented with episode of palpitation dizziness lightheadedness and a heavy bout of perspiration. Rise and fall fall pattern of troponin. Aspirin, Lipitor, IV heparin, Lopressor. Cardiology consulted with a view to cardiac catheterization -Coronary artery disease with a prior stent to RCA in 2018 Aspirin, Lipitor, Lopressor, lisinopril -Diabetes mellitus type 2 and oral hypoglycemic On metformin-hold, Levemir. Follow Accu-Cheks -IV heparin monitoring Follow PTT -Essential hypertension Lopressor 25 twice a day, lisinopril 5 mg a day -Hyperlipidemia On Lipitor, low fibra -Obesity BMI 31.3 Weight loss measures and follow-up with PCP -Chronic nicotine dependence, cigarette smoker Nicotine patch Patient being admitted. IV heparin. Home medications be resumed. Follow Accu- Cheks. Hold off metformin. Care was discussed with the patient and at the bedside. Questions answered. Cardiology consulted Given the complexity and severity of patient's condition expect the patient to be in the hospital at least for 2 overnights Past Medical History Past Medical History: Diabetes Mellitus, Hyperlipidemia, Hypertension, Myoc ardial Infarction (VA), Osteoarthritis (OA), Skin Disorder Additional Past Medical History / Comment(s): Psorasis. Last Myocardial Infarction Date:: 2008 History of Any Multi-Drug Resistant Organisms: None Reported Past Surgical History: Heart Catheterization With Stent, Hernia Repair, Joint Replacement, Orthopedic Surgery Past Anesthesia/Blood Transfusion Reactions: No Reported Reaction Date of Last Stent Placement:: 2008 Past Psychological History: No Psychological Hx Reported Smoking Status: Current some day smoker, Smoker, current status unknown Past Alcohol Use History: Occasional Past Drug Use History: None Reported - Past Family History Mother Family Medical History: Liver Disease Father Family Medical History: Coronary Artery Disease (CAD) Medications and Allergies Home Medications Medication Instructions Recorded Confirmed Type Atorvastatin Calcium [Lipitor] 80 mg PO DAILY 09/22/19 06/30/21 History Dapagliflozin Propanediol [Farxiga] 5 mg PO DAILY 09/22/19 06/30/21 History Gemfibrozil [Lopid] 600 mg PO AC-BID 09/22/19 06/30/21 History Insulin Aspart [NovoLOG Flexpen] See Protocol SQ ACHS PRN 09/22/19 06/30/21 History Insulin Degludec [Tresiba] 50 units SQ HS 09/22/19 06/30/21 History Metoprolol Tartrate [Lopressor] 25 mg PO BID 09/22/19 06/30/21 History lisinopriL [Zestril] 5 mg PO DAILY 09/22/19 06/30/21 History metFORMIN HCL [Glucophage] 1,000 mg PO BID 09/22/19 06/30/21 History Apixaban [Eliquis] 5 mg PO BID #60 tab 09/23/19 06/30/21 Rx Aspirin 81 mg PO DAILY #30 chew 09/23/19 06/30/21 Rx Adalimumab [Humira(Cf) Pen] 40 mg SQ Q14D 06/30/21 06/30/21 History Allergies Allergy/AdvReac Type Severity Reaction Status Date / Time ciprofloxacin [From Cipro] Allergy Rash/Hives Verified 06/30/21 20:55 Physical Exam Vitals: Vital Signs Temp Pulse Pulse Resp BP BP Pulse Ox 07/01/21 08:10 97.5 F L 60 16 97/64 97 07/01/21 03:15 98.1 F 68 16 96/64 99 07/01/21 00:07 98.5 F 75 16 104/69 95 06/30/21 23:50 98.7 F 97 23 106/76 98 06/30/21 23:49 98.7 F 97 23 106/76 98 06/30/21 22:00 74 20 94/69 96 06/30/21 21:00 109 H 22 97/71 97 06/30/21 20:00 103 H 22 94/69 97 06/30/21 19:51 98.6 F 69 20 103/70 97 Intake and Output 06/30/21 07/01/21 07/01/21 22:59 06:59 14:59 Other: Weight 92.986 kg 93.4 kg Results CBC & Chem 7: 07/01/21 13:52 Labs: Abnormal Lab Results - Last 24 Hours (Table) 06/30/21 06/30/21 07/01/21 Range/Units 20:07 23:23 01:24 POC Glucose (mg/dL) (75-99) mg/dL Troponin I 0.039 H* 0.112 H* 0.137 H* (0.000-0.034) ng/mL 07/01/21 Range/Units 06:20 POC Glucose (mg/dL) 117 H (75-99) mg/dL Troponin I (0.000-0.034) ng/mL Thrombosis Risk Factor Assmnt - Choose All That Apply Any of the Below Risk Factors Present?: Yes Each Factor Represents 1 point: Obesity (BMI >25) Other Risk Factors: Yes Each Risk Factor Represents 2 Points: Age 61-74 years Other congenital or acquired thrombophilia - If yes, enter type in comment: No Thrombosis Risk Factor Assessment Total Risk Factor Score: 3 Thrombosis Risk Factor Assessment Level: Moderate Risk
[2021-07-01] MEDS: NICOTINE 7MG/24HR PATCH TRANSDERM SCH (17:54)
--- NOTE | 2021-07-01 18:40 | XR ---
EXAMINATION TYPE: XR chest 2V DATE OF EXAM: 07/01/2021 COMPARISON: 06/30/2021 HISTORY: Smoker TECHNIQUE: FINDINGS: Heart and mediastinum are within normal limits. Lungs are clear of consolidation. There are no hilar masses. Costophrenic angles are clear. There are chest leads. IMPRESSION: No active cardiopulmonary disease. No change.
[2021-07-01 20:07] LABS: Glucose,Whole Blood 141 mg/dL (75-99)
[2021-07-01] MEDS: INSULIN DETEMIR (LEVEMIR) 100 UNIT/ML SYR SQ SCH (20:10)
[2021-07-01] MEDS ORDERED: metFORMIN 500 MG TAB PO SCH (21:00)
[2021-07-02] MEDS ORDERED: SODIUM CHLORIDE 0.9% 1,000 ML in EMPTY BAG 1 BAG IV ONE
[2021-07-02] MEDS: ACETAMINOPHEN TAB 325 MG TAB PO PRN ×3 (03:32→18:20)
[2021-07-02 06:14] LABS: Basophils % (A) 1 %; Eosinophils # (A) 0.1 k/uL (0-0.7); Eosinophils % (A) 1 %; HCT 47.8 % (39.0-53.0); HGB 15.9 gm/dL (13.0-17.5); Lymphocytes # (A) 1.9 k/uL (1.0-4.8); Lymphocytes % (A) 41 %; MCH 31.9 pg (25.0-35.0); MCHC 33.2 g/dL (31.0-37.0); MCV 95.9 fL (80.0-100.0); Mean Platelet Volume 8.1; Monocytes # (A) 0.3 k/uL (0-1.0); Monocytes % (A) 7 %; Neutrophils # (A) 2.1 k/uL (1.3-7.7); Neutrophils % (A) 46 %; Platelet Count 140 k/uL (150-450); RBC 4.99 m/uL (4.30-5.90); RDW 14.5 % (11.5-15.5); WBC 4.6 k/uL (3.8-10.6)
[2021-07-02 06:23] LABS: African American GFR (CKD) >90 (>60 ml/min/1.73 sqM); Anion Gap 5 mmol/L; Blood Urea Nitrogen 13 mg/dL (9-20); Calcium 8.6 mg/dL (8.4-10.2); Carbon Dioxide 24 mmol/L (22-30); Chloride 110 mmol/L (98-107); Glucose 83 mg/dL (74-99); Non-African American GFR(CKD) >90 (>60 ml/min/1.73 sqM); Potassium 3.3 mmol/L (3.5-5.1); Sodium 139 mmol/L (137-145)
[2021-07-02 06:25] LABS: INR 1.1 (<1.2); Partial Thromboplastin Time 55.6 sec (22.0-30.0); Prothrombin Time 11.4 sec (9.0-12.0)
[2021-07-02 06:29] LABS: Glucose,Whole Blood 73 mg/dL (75-99)
[2021-07-02] MEDS: lisinopriL 5 MG TAB PO SCH (06:29)
[2021-07-02] MEDS: ATORVASTATIN 80 MG TAB PO SCH (06:29)
[2021-07-02] MEDS: INSULIN ASPART (NovoLOG) 100 UNIT/ML VIAL SQ SCH ×4 (06:29→20:38)
[2021-07-02] MEDS: ASPIRIN 81 MG PO SCH (06:29)
[2021-07-02] MEDS: METOPROLOL TARTRATE 25 MG TAB PO SCH ×2 (06:29→20:38)
[2021-07-02] MEDS: FENOFIBRATE 160 MG TAB PO SCH (06:29)
[2021-07-02] MEDS ORDERED: HEPARIN SODIUM,PORCINE 2,500 UNIT in SODIUM CHLORIDE 0.9% 250 ML IRRIGATION PRN (07:00)
[2021-07-02] MEDS ORDERED: HEPARIN SODIUM,PORCINE 10,000 UNIT in SODIUM CHLORIDE 0.9% 1,000 ML IRRIGATION PRN (07:00)
[2021-07-02] MEDS ORDERED: IV FLUID CONTINUATION 1,000 ML IV ONE (08:45)
[2021-07-02] MEDS ORDERED: HEPARIN SODIUM 1,000 UN/ML (10ML VL) ONE (08:54)
[2021-07-02] MEDS ORDERED: fentaNYL (PF) 50 MCG/ML 2 ML AMP ONE (08:54)
[2021-07-02] MEDS ORDERED: VERAPAMIL 2.5 MG/ML 2 ML AMP ONE (08:54)
[2021-07-02] MEDS ORDERED: LIDOCAINE 1% INJ 10MG/ML (20 ML MDV) ONE (08:54)
[2021-07-02] MEDS: MIDAZOLAM 2 MG/2 ML VIAL IV ONE ×2 (09:13→09:49)
[2021-07-02] MEDS ORDERED: fentaNYL (PF) 50 MCG/ML 2 ML AMP IV ONE (09:13)
[2021-07-02] MEDS ORDERED: LIDOCAINE 1% INJ 10MG/ML (20 ML MDV) SQ ONE (09:17)
[2021-07-02] MEDS: VERAPAMIL SYRINGE (5 MG/10 ML) INTRAARTER ONE ×2 (09:18→10:00)
[2021-07-02] MEDS: HEPARIN SODIUM 1,000 UN/ML (10ML VL) IV ONE ×2 (09:24→09:53)
--- NOTE | 2021-07-02 09:44 | P.CARDCATH ---
Date of Procedure: 07/02/21 Preoperative Diagnosis: Non-STEMI Postoperative Diagnosis: Critical lesion involving the proximal to mid LAD Implants: Left heart catheterization without left ventriculography Description of Procedure: HISTORY: This is a 71-year-old gentleman with history of ischemic heart disease with a previous stent placement of the RCA done in 2010 and also known atrial fibrillation was admitted to the hospital with chest pain, sweating and A. fib with RVR. Patient subsequently converted to sinus rhythm. However, his troponin values went up suggestive of non-STEMI. He is advised to have a cardiac cath for definitive diagnosis CONSENT:I have discussed the risks, benefits and alternative therapies for the above-mentioned procedure and for both sedation/analgesia as well as necessary blood product administration, if indicated, as they pertain to this patient. The patient has indicated understanding and acceptance of the risks and procedures discussed. PROCEDURE: Patient was brought to the lab in a fasting state. Patient was given some IV sedation. The right wrist is infiltrated with lidocaine and right radial artery was entered using Seldinger technique. A 6-Sami catheter was left in place and selective coronary arteriography was performed. Patient tolerated the procedure well. Patient is waiting to have stent placement by Dr. GARRY Arechiga. No immediate complications were noted and patient was transferred to [facility] in a stable condition Conscious Sedation: Versed 1mg Fentanyl 50 g Duration 20minutes HEMODYNAMICS: The aortic pressure is 110/78. The left ventricle end-diastolic pressure was about 12-15. No gradient across the aortic valve SELECTIVE CORONARY ARTERIOGRAPHY: LEFT MAIN: Normal length and free of occlusive disease THE LEFT ANTERIOR DESCENDING CORONARY ARTERY: . This is a moderate caliber vessel with a diffuse plaque with about 80% stenosis in the proximal, midportion, between first septal and diagonal branches THE LEFT CIRCUMFLEX AND IS CORONARY ARTERY: . Nondominant vessel giving rise good-sized OM branch. Circumflex coronary artery is mild diffuse plaque without any Sigmund focal lesions THE RIGHT CORONARY ARTERY: . This is a good caliber vessel with evidence of previous stent placement. There is about 40-50% stenosis in the midportion LEFT VENTRICULOGRAPHY: Not performed FINAL IMPRESSION: . The lesion involving the proximal to mid LAD. Moderate disease in the RCA. Diffuse plaque in the rest of the coronary system PLAN: Proceed with stent placement of the LAD PROGNOSIS: Fair
[2021-07-02] MEDS ORDERED: TICAGRELOR 90 MG TAB ONE (10:11)
[2021-07-02] MEDS ORDERED: IOPAMIDOL-370 125ML BTL INJ ONE (10:14)
[2021-07-02] MEDS ORDERED: NITROGLYCERIN 1000MCG/10ML SYRINGE INTRACORON ONE (10:14)
[2021-07-02] MEDS ORDERED: TICAGRELOR 90 MG TAB PO ONE (10:18)
[2021-07-02] MEDS ORDERED: IOPAMIDOL-370 50ML BTL INJ ONE (10:20)
[2021-07-02] MEDS: NON FORMULARY DRUG (Dapagliflozin Propanediol [Farxiga] 5 MG Tablet) PO SCH (11:43)
[2021-07-02] MEDS: NICOTINE 7MG/24HR PATCH TRANSDERM SCH (11:43)
[2021-07-02] MEDS: HEPARIN SOD,PORK IN 0.45% NACL 25,000 UNIT in 0.45% NACL 1 250ML.BAG IV SCH (11:54)
[2021-07-02 12:16] LABS: Glucose,Whole Blood 163 mg/dL (75-99)
--- NOTE | 2021-07-02 13:12 | PTCA ---
PERCUTANEOUSTRANS CORORONARY ANGIOGRAPHY DATE OF SERVICE: 07/02/2021 PROCEDURE: PTCA and stenting of mid left anterior descending coronary artery with a drug-eluting stent. PERFORMED BY: Dr. Zeeshan Arechiga. Moderate conscious sedation time was 37 minutes. Patient was administered Versed. Oxygen saturation, hemodynamics and EKG were monitored closely. CLINICAL INFORMATION: Mr. Cayetano Nunez is a 71-year-old gentleman with a known history of hypertension, diabetes, hyperlipidemia, previous stenting of RCA, came into the hospital with a non- ST elevation IN. He was seen and evaluated by Dr. Ibrahim who performed a cardiac cath that revealed that the RCA was patent and this was stented in 2010. But he now had a long mid LAD lesion of about 80-90 percent from the first diagonal beyond the second diagonal involving the septal and the second diagonal. He was advised intervention that was performed in the same setting from the right radial approach. PROCEDURE DETAILS: The existing 6-Swiss introducer in the right radial artery was used to perform the procedure. A JL3.5 guide catheter was used to cannulate the left coronary artery. There was a plaque in the left main noted. A run-through wire was used to cross the lesion. Predilatation was performed with a 2.5 caliber 20 mm long NC Trek balloon. I then deployed a 23 mm long 2.75 caliber Xience stent at 13 atmospheres. Patient did not have any significant chest pain but had mild anterior ST elevation. He was given heparin and ACT was 290. Excellent angiographic result was achieved without complication. The sheath was taken out and TR band applied as per protocol. The patient was sent to the room in a stable condition. The saturation of the fingers of the right hand was 94%. Results were discussed with the patient and . Excellent angiographic result without complication was achieved. I expect patient to be discharged the next 24 hours. MMODL / IJN: [id number] /
[2021-07-02] MEDS ORDERED: POTASSIUM CHLORIDE ER 20 MEQ TAB.ER PO STA (15:26)
--- NOTE | 2021-07-02 15:28 | P.PN ---
Progress Note - Text Progress Note Date: 07/02/21 Chief Complaint: Perspiration History of presenting complaint: This is a 71-year-old patient, follows with Dr. Fernández. Chronic stable medical conditions include diabetes mellitus type 2, hyperlipidemia, hypertension, osteoarthritis,. Patient smokes about a pack or greater period of 2 weeks. Has known coronary artery disease with stent follows with chief development officer Dr. Cherelle Wong. Patient yesterday morning 4:00 on top admin fishing with friends. Had his breakfast. Had to 3 beers. Came home. I was sitting down any protocol and IV sweat. Chest was pounding. Nausea. Today some burning sensation in the upper epigastrium. decided to bring him in. He also felt lightheaded and dizzy. Initially presented to [facility] EKG showed atrial fibrillation with a rate in 150s. Potassium was 3.8. BUN 16, creatinine 0.6. Troponin 0.018. He has a known prior history of atrial fibrillation. Patient spontaneously went back into sinus rhythm. He has a prior stent of the RCA. Currently no chest pain. at the bedside. Normally fairly active. Admitted with acute non-Q wave CT. Patient IV heparin. July 02: Underwent angioplasty stenting to the LAD today. Postprocedure laying in bed. No guarding symptoms. Oral intake good. at the bedside. Review of systems: Was done for constitutional, cardiovascular, GI, pulmonary. relevant finding as above Active Medications Acetaminophen (Acetaminophen Tab 325 Mg Tab) 650 mg PO Q6HR PRN PRN Reason: Fever and/ or Pain Last Admin: 07/02/21 10:56 Dose: 650 mg Documented by: Alprazolam (Alprazolam 0.25 Mg Tab) 0.25 mg PO Q6HR PRN PRN Reason: Mild Anxiety Alprazolam (Alprazolam 0.5 Mg Tab) 0.5 mg PO Q6HR PRN PRN Reason: Moderate Anxiety Aspirin (Aspirin 81 Mg) 81 mg PO DAILY [facility] Last Admin: 07/02/21 06:29 Dose: 81 mg Documented by: Atorvastatin Calcium (Atorvastatin 80 Mg Tab) 80 mg PO DAILY [facility] [place] Last Admin: 07/02/21 06:29 Dose: 80 mg Documented by: Heparin Sodium (Porcine) (Heparin Sodium 1,000 Un/Ml (10ml Vl)) 0 unit IV PER PROTOCOL PRN; Protocol PRN Reason: Low PTT Last Admin: 07/01/21 23:34 Dose: 4,000 unit Documented by: Heparin Sodium/Sodium Chloride (25,000 unit/ Sodium Chloride) 250 mls @ 9.999 mls/hr IV .Q24H [facility]; Protocol Last Admin: 07/02/21 11:54 Dose: Not Given Documented by: Insulin Aspart (Insulin Aspart (Novolog) 100 Unit/Ml Vial) 0 unit SQ ACHS [facility]; Protocol Last Admin: 07/02/21 12:34 Dose: 1 unit Documented by: Insulin Detemir (Insulin Detemir (Levemir) 100 Unit/Ml Syr) 50 unit SQ HS [facility] [place] Last Admin: 07/01/21 20:10 Dose: 50 unit Documented by: Lisinopril (Lisinopril 5 Mg Tab) 5 mg PO DAILY [facility] Last Admin: 07/02/21 06:29 Dose: 5 mg Documented by: Losartan Potassium (Losartan 50 Mg Tab) 50 mg PO DAILY@2100 JARED Metoprolol Tartrate (Metoprolol Tartrate 25 Mg Tab) 25 mg PO BID [facility] [place] Last Admin: 07/02/21 06:29 Dose: 25 mg Documented by: Nicotine (Nicotine 7mg/24hr Patch) 1 patch TRANSDERM DAILY [facility] Last Admin: 07/02/21 11:43 Dose: Not Given Documented by: Nitroglycerin (Nitroglycerin Sl Tabs 0.4 Mg Tab) 0.4 mg SUBLINGUAL Q5M PRN PRN Reason: Chest Pain Non-Formulary Medication (Dapagliflozin Propanediol [Farxiga]) 5 mg PO DAILY [facility] [place] Last Admin: 07/02/21 11:43 Dose: Not Given Documented by: Ticagrelor (Ticagrelor 90 Mg Tab) 90 mg PO BID [facility] Past medical history to include: Diabetes mellitus, hyperlipidemia, hypertension, osteoarthritis, acute CT, psoriasis, coronary artery disease stent in 2019 Social history: . Smokes about half a pack every week. Alcohol occasionally. Retired from being doing plowing Family history: Liver disease Physical examination: VITAL SIGNS: Afebrile, 62, 16, 112/63, 95% room air GENERAL: Laying in bed, comfortable EYES: Pupils equal. Conjunctiva normal. NECK: JVD not raised; masses not palpable. HEART: First and second heart sounds are normal; no edema. LUNGS: Respiratory rate normal; decreased breath sounds. MUSCULAR skeletal: Evidence of some OA ABDOMEN: Soft, nontender, liver spleen not palpable, no masses palpable. PSYCH: Alert and oriented x3; mood and affect normal. NEUROLOGICAL: Cranial nerves grossly intact; no facial asymmetry, power and sensation grossly intact. INVESTIGATIONS, reviewed in the clinical context: WBC 4.7 hemoglobin 13.8 platelets 153 Troponin I 0.13, 0.11, 0.039 LDL 42 EKG tracing personally reviewed by me-atrial fibrillation with a rate of 108 done at our hospital 2-D echocardiogram: EF 55-60%. Assessment and plan: -Probable acute non-Q wave CT. This is a patient with known coronary artery disease with a prior stent. Smokes intermittently. Presented with episode of palpitation dizziness lightheadedness and a heavy bout of perspiration. Rise and fall fall pattern of troponin. Aspirin, Lipitor, IV heparin, Lopressor. Cardiac catheterization: Angioplasty stenting to LAD. Brillinta added -Coronary artery disease with a prior stent to RCA in 2018 Aspirin, Lipitor, Lopressor, lisinopril -Diabetes mellitus type 2 and oral hypoglycemic On metformin-hold, Levemir. Follow Accu-Cheks -IV heparin monitoring Follow PTT -Essential hypertension Lopressor 25 twice a day, lisinopril 5 mg a day -Hyperlipidemia On Lipitor, low fibra -Obesity BMI 31.3 Weight loss measures and follow-up with PCP -Chronic nicotine dependence, cigarette smoker Nicotine patch Continue current medications. Brillinta added. Increase activity as tolerated. Other medications to continue. Discussed with the patient and
[2021-07-02 16:45] LABS: Glucose,Whole Blood 158 mg/dL (75-99)
[2021-07-02 20:15] LABS: Glucose,Whole Blood 145 mg/dL (75-99)
[2021-07-02] MEDS: INSULIN DETEMIR (LEVEMIR) 100 UNIT/ML SYR SQ SCH (20:39)
[2021-07-02] MEDS ORDERED: LOSARTAN 50 MG TAB PO SCH (21:00)
[2021-07-03] MEDS: ACETAMINOPHEN TAB 325 MG TAB PO PRN (04:30)
[2021-07-03] MEDS: INSULIN ASPART (NovoLOG) 100 UNIT/ML VIAL SQ SCH ×2 (06:05→11:44)
[2021-07-03 06:07] LABS: Glucose,Whole Blood 66 mg/dL (75-99)
[2021-07-03 06:22] LABS: Glucose,Whole Blood 72 mg/dL (75-99)
[2021-07-03 08:51] LABS: African American GFR (CKD) >90 (>60 ml/min/1.73 sqM); Anion Gap 6 mmol/L; Blood Urea Nitrogen 9 mg/dL (9-20); Carbon Dioxide 22 mmol/L (22-30); Chloride 111 mmol/L (98-107); Glucose 81 mg/dL (74-99); Non-African American GFR(CKD) >90 (>60 ml/min/1.73 sqM); Potassium 4.3 mmol/L (3.5-5.1); Sodium 139 mmol/L (137-145)
[2021-07-03] MEDS ORDERED: TICAGRELOR 90 MG TAB PO SCH (09:00)
[2021-07-03] MEDS: ASPIRIN 81 MG PO SCH (09:44)
[2021-07-03] MEDS: ATORVASTATIN 80 MG TAB PO SCH (09:44)
[2021-07-03] MEDS: lisinopriL 5 MG TAB PO SCH (09:44)
[2021-07-03] MEDS: METOPROLOL TARTRATE 25 MG TAB PO SCH (09:44)
[2021-07-03] MEDS: NICOTINE 7MG/24HR PATCH TRANSDERM SCH (09:45)
[2021-07-03] MEDS: NON FORMULARY DRUG (Dapagliflozin Propanediol [Farxiga] 5 MG Tablet) PO SCH (09:46)
[2021-07-03 10:45] VITALS: RESP 16
[2021-07-03] MEDS ORDERED: APIXABAN 5 MG TAB PO SCH (11:00)
[2021-07-03 11:31] LABS: Glucose,Whole Blood 141 mg/dL (75-99)
[2021-07-03 12:17] VITALS: BP 125/75; PULSE 61; TEMP 97.3
--- NOTE | 2021-07-03 14:39 | P.PN ---
Subjective Progress Note Date: 07/03/21 HISTORY OF PRESENT ILLNESS: This is a 71-year-old male who underwent cardiac catheterization yesterday with stent placement to the LAD. Patient examined this morning at the bedside. He denies chest pain or pressure. He denies shortness of breath. Vital signs are stable. PHYSICAL EXAM: VITAL SIGNS: Reviewed. GENERAL: Well-developed in no acute distress. NECK: Supple. No JVD or thyromegaly LUNGS: Respirations even and unlabored. Lungs essentially clear to auscultation bilaterally. HEART: Regular rate and rhythm. S1 and S2 heard. EXTREMITIES: Normal range of motion. No clubbing or cyanosis. Peripheral pulses intact. No lower extremity edema. Right wrist catheter with pulse present ASSESSMENT: Non-STEMI, status post PCI to LAD Coronary artery disease with previous stent placement to RCA in 2010 Paroxysmal atrial fibrillation on anticoagulative with Eliquis PLAN: Resume Eliquis Continue additional cardiac medications Patient is stable for discharge home today from a cardiac standpoint Nurse practitioner note has been reviewed by physician. Signing provider agrees with the documented findings, assessment, and plan of care. Objective - Vital Signs Vital signs: Vital Signs Temp 97.3 F L 07/03/21 11:10 Pulse 61 07/03/21 11:10 Resp 16 07/03/21 11:10 BP 125/75 07/03/21 11:10 Pulse Ox 97 07/03/21 11:10 Intake & Output 07/02/21 07/03/21 07/03/21 18:59 06:59 18:59 Intake Total 630 480 Balance 630 480 Weight 94.2 kg Intake: IV 150 Oral 480 480 Other: # Voids 0 1 # Bowel Movements 0 - Labs CBC & Chem 7: 07/02/21 05:55 07/03/21 07:44 Labs: Abnormal Lab Results - Last 24 Hours (Table) 07/02/21 07/02/21 07/03/21 Range/Units 16:42 20:14 06:03 Chloride (98-107) mmol/L Creatinine (0.66-1.25) mg/dL POC Glucose (mg/dL) 158 H 145 H 66 L (75-99) mg/dL 07/03/21 07/03/21 07/03/21 Range/Units 06:20 07:44 11:30 Chloride 111 H (98-107) mmol/L Creatinine 0.43 L (0.66-1.25) mg/dL POC Glucose (mg/dL) 72 L 141 H (75-99) mg/dL
--- NOTE | 2021-07-03 17:37 | P.DS ---
Providers Date of admission: 06/30/21 22:53 Expected date of discharge: 07/03/21 Attending physician: Jason Leone Consults: 06/30/21 22:53 Consult Physician Urgent Consulting Provider: Romel Koch Consult Reason/Comments: Elevated troponin Do you want consulting provider notified?: Yes Primary care physician: [facility] Course: Chief Complaint: Perspiration History of presenting complaint: This is a 71-year-old patient, follows with Dr. Fernández. Chronic stable medical conditions include diabetes mellitus type 2, hyperlipidemia, hypertension, osteoarthritis,. Patient smokes about a pack or greater period of 2 weeks. Has known coronary artery disease with stent follows with mud mixer helper Dr. Cherelle Wong. Patient yesterday morning 4:00 on top admin fishing with friends. Had his breakfast. Had to 3 beers. Came home. I was sitting down any protocol and IV sweat. Chest was pounding. Nausea. Today some burning sensation in the upper epigastrium. decided to bring him in. He also felt lightheaded and dizzy. Initially presented to [facility] varicose EKG showed atrial fibrillation with a rate in 150s. Potassium was 3.8. BUN 16, creatinine 0.6. Troponin 0.018. He has a known prior history of atrial fibrillation. Patient spontaneously went back into sinus rhythm. He has a prior stent of the RCA. Currently no chest pain. at the bedside. Normally fairly active. Admitted with acute non-Q wave [place]. Patient IV heparin. July 02: Underwent angioplasty stenting to the LAD today. Postprocedure laying in bed. No guarding symptoms. Oral intake good. at the bedside. July 03: Up and about. No cardiac symptoms. Feeling well. Discussed with the patient and . Questions answered. Cleared by cardiology. Consultation: Dr. Gooden from cardiology beverage specialist: Dr. GARRY Arechiga Past medical history to include: Diabetes mellitus, hyperlipidemia, hypertension, osteoarthritis, acute [place], psoriasis, coronary artery disease stent in 2019 Social history: . Smokes about half a pack every week. Alcohol occasionally. Retired from being doing plowing Family history: Liver disease Physical examination: VITAL SIGNS: 97.3, 61, 16, 125/75, 97% room air GENERAL: Laying in bed, comfortable EYES: Pupils equal. Conjunctiva normal. NECK: JVD not raised; masses not palpable. HEART: First and second heart sounds are normal; no edema. LUNGS: Respiratory rate normal; decreased breath sounds. MUSCULAR skeletal: Evidence of some OA ABDOMEN: Soft, nontender, liver spleen not palpable, no masses palpable. PSYCH: Alert and oriented x3; mood and affect normal. INVESTIGATIONS, reviewed in the clinical context: July 03: Potassium 4.3 creatinine 0.43 WBC 4.7 hemoglobin 13.8 platelets 153 Troponin I 0.13, 0.11, 0.039 LDL 42 EKG tracing personally reviewed by me-atrial fibrillation with a rate of 108 done at our hospital 2-D echocardiogram: EF 55-60%. Assessment and plan: - acute non-Q wave FL. Aspirin, Lipitor, IV heparin, Lopressor. Cardiac catheterization: Angioplasty stenting to LAD. Brillinta added -Coronary artery disease with a prior stent to RCA in 2018 Aspirin, Lipitor, Lopressor, lisinopril -Diabetes mellitus type 2 and oral hypoglycemic On metformin- Levemir. Follow Accu-Cheks -IV heparin monitoring-discontinued -Essential hypertension Lopressor 25 twice a day, lisinopril 5 mg a day -Hyperlipidemia On Lipitor, lo- fibra -Obesity BMI 31.3 Weight loss measures and follow-up with PCP -Chronic nicotine dependence, cigarette smoker Nicotine patch Disposition: Home Plan - Discharge Summary Discharge Rx Participant: No New Discharge Prescriptions: New Ticagrelor [Brilinta] 90 mg PO BID #60 tab Nicotine 7Mg/24Hr Patch [Habitrol] 1 patch TRANSDERM DAILY #14 patch Losartan [Cozaar] 50 mg PO DAILY@2100 #30 tab Nitroglycerin Sl Tabs [Nitrostat] 0.4 mg SUBLINGUAL Q5M PRN #30 tab PRN Reason: Chest Pain Continue Metoprolol Tartrate [Lopressor] 25 mg PO BID lisinopriL [Zestril] 5 mg PO DAILY Atorvastatin Calcium [Lipitor] 80 mg PO DAILY Insulin Degludec [Tresiba] 50 units SQ HS Insulin Aspart [NovoLOG Flexpen] See Protocol SQ ACHS PRN PRN Reason: HIGH BLOOD SUGAR Gemfibrozil [Lopid] 600 mg PO AC-BID metFORMIN HCL [Glucophage] 1,000 mg PO BID Dapagliflozin Propanediol [Farxiga] 5 mg PO DAILY Aspirin 81 mg PO DAILY #30 chew Apixaban [Eliquis] 5 mg PO BID #60 tab Adalimumab [Humira(Cf) Pen] 40 mg SQ Q14D Discharge Medication List Atorvastatin Calcium [Lipitor] 80 mg PO DAILY 09/22/19 [History] Dapagliflozin Propanediol [Farxiga] 5 mg PO DAILY 09/22/19 [History] Gemfibrozil [Lopid] 600 mg PO AC-BID 09/22/19 [History] Insulin Aspart [NovoLOG Flexpen] See Protocol SQ ACHS PRN 09/22/19 [History] Insulin Degludec [Tresiba] 50 units SQ HS 09/22/19 [History] Metoprolol Tartrate [Lopressor] 25 mg PO BID 09/22/19 [History] lisinopriL [Zestril] 5 mg PO DAILY 09/22/19 [History] metFORMIN HCL [Glucophage] 1,000 mg PO BID 09/22/19 [History] Apixaban [Eliquis] 5 mg PO BID #60 tab 09/23/19 [Rx] Aspirin 81 mg PO DAILY #30 chew 09/23/19 [Rx] Adalimumab [Humira(Cf) Pen] 40 mg SQ Q14D 06/30/21 [History] Losartan [Cozaar] 50 mg PO DAILY@2100 #30 tab 07/03/21 [Rx] Nicotine 7Mg/24Hr Patch [Habitrol] 1 patch TRANSDERM DAILY #14 patch 07/03/21 [Rx] Nitroglycerin Sl Tabs [Nitrostat] 0.4 mg SUBLINGUAL Q5M PRN #30 tab 07/03/21 [Rx] Ticagrelor [Brilinta] 90 mg PO BID #60 tab 07/03/21 [Rx] Follow up Appointment(s)/Referral(s): Danny Fernández MD [Primary Care Provider] - 1-2 days (Please call office during normal business hours to schedule follow up. ) Abram Farah MD [STAFF PHYSICIAN] - 1 Week (Please call office during normal business hours to schedule follow up. ) Patient Instructions/Handouts: A-fib (Atrial Fibrillation) (DC), Safe Use of Anticoagulants (DC), After Radial Heart Catheterization (GEN) Discharge Disposition: HOME SELF-CARE
== END 2021-07-03 13:32 | disposition home or self-care (01) | DRG 247 ==
LOC: EC 19:51 → 3SCARD 22:53
PROVIDERS: ADMIT Hospitalist; ATTEND Hospitalist
PROC: B2111ZZ Fluoroscopy of Multiple Coronary Arteries using Low Osmolar Contrast (ICD-10-PCS; 2021-07-02)
PROC: 027034Z Dilation of Coronary Artery, One Artery with Drug-eluting Intraluminal Device, Percutaneous Approach (ICD-10-PCS; principal; 2021-07-02 09:00)
PROC: 4A023N7 Measurement of Cardiac Sampling and Pressure, Left Heart, Percutaneous Approach (ICD-10-PCS; 2021-07-02 09:00)
DX: I21.4 Non-ST elevation (NSTEMI) myocardial infarction (principal); I48.0 Paroxysmal atrial fibrillation; I25.10 Atherosclerotic heart disease of native coronary artery without angina pectoris; E11.9 Type 2 diabetes mellitus without complications; E78.5 Hyperlipidemia, unspecified; Z79.01 Long term (current) use of anticoagulants; Z79.82 Long term (current) use of aspirin; Z79.899 Other long term (current) drug therapy; I10 Essential (primary) hypertension; I25.2 Old myocardial infarction; M19.90 Unspecified osteoarthritis, unspecified site; F17.210 Nicotine dependence, cigarettes, uncomplicated; Z95.5 Presence of coronary angioplasty implant and graft; E66.9 Obesity, unspecified; Z68.31 Body mass index [BMI] 31.0-31.9, adult; Z79.84 Long term (current) use of oral hypoglycemic drugs; Z82.49 Family history of ischemic heart disease and other diseases of the circulatory system
CPT/HCPCS: 36415; 71046; 80048; 80061; 84484; 85025; 85610; 85730; 93005; 93306; 93458; 99285

== ENCOUNTER 2023-04-16 05:54 | Day surgery (SDC) | payer MEDICARE, BC ==
[2023-04-16] MEDS ORDERED: LACTATED RINGERS 1,000 ML IV SCH (06:09)
[2023-04-16] MEDS ORDERED: LIDOCAINE 1% (10MG/ML) FOR IV START INTRADERMA PRN (06:09)
[2023-04-16 06:25] VITALS: RESP 18
[2023-04-16 06:39] LABS: Glucose,Whole Blood 101 mg/dL (70-110)
[2023-04-16 07:06] LABS: African American GFR (CKD) >90 (>60 ml/min/1.73 sqM); Anion Gap 8 mmol/L; Blood Urea Nitrogen 18 mg/dL (9-20); Calcium 9.2 mg/dL (8.4-10.2); Carbon Dioxide 24 mmol/L (22-30); Chloride 110 mmol/L (98-107); Glucose 110 mg/dL (74-99); Non-African American GFR(CKD) >90 (>60 ml/min/1.73 sqM); Potassium 4.1 mmol/L (3.5-5.1); Sodium 142 mmol/L (137-145)
[2023-04-16] MEDS ORDERED: PROPOFOL 10 MG/ML 20 ML VIAL IV ONE (07:30)
[2023-04-16] MEDS ORDERED: BENZOCAINE SPRAY 1 CAN TOPICAL ONE (07:33)
[2023-04-16 07:52] VITALS: TEMP 97.6
[2023-04-16] MEDS ORDERED: SODIUM CHLORIDE 0.9% 1,000 ML IV SCH (08:30)
[2023-04-16 09:00] VITALS: BP 128/95; PULSE 77
--- NOTE | 2023-04-16 10:35 | ECHOT ---
TRANSESOPHAGEAL ECHOCARDIOGRAM PROCEDURES PERFORMED: Transesophageal echocardiogram and cardioversion. PAO INDICATION: Persistent atrial fibrillation, to rule out intracardiac thrombus. PROCEDURE NOTE: After obtaining informed consent, transesophageal echocardiogram was performed in left lateral position using an Omniplane probe. Local and IV sedation were obtained by the computer systems technician. The patient had some mucosal trauma within the mouth with bleeding that has stopped spontaneously. FINDINGS: 1. There is no thrombus within the left atrial appendage, left atrium, right atrium or right ventricle. 2. Left atrium appears enlarged. 3. Right atrium and right ventricle are within normal limits. 4. Left ventricle has normal size and systolic function. 5. Mitral valve is anatomically normal. There is mild mitral regurgitation noted. 6. Tricuspid valve appears normal. 7. Aortic valve is a 3-leaflet valve. There is no evidence of aortic stenosis or regurgitation. 8. Aortic root measures within normal limits. 9. Interatrial septum, there is no evidence of uyqg-pj-rdats shunt by color-flow Doppler or upmos-lj-vzue shunt by agitated saline contrast study. CONCLUSION: No intracardiac thrombus. PLAN: We will proceed with cardioversion. CARDIOVERSION NOTE: INDICATION: Persistent atrial fibrillation. After ensuring that the patient is adequately anticoagulated with Eliquis, ruling out intracardiac thrombus within the left atrial appendage, the patient underwent cardioversion with synchronized DC current. He was shocked once with 150 joules and converted to sinus rhythm. MMODL / IJN: [id number] /
== END 2023-04-16 09:20 | disposition home or self-care (01) ==
LOC: OR 05:54
PROVIDERS: ATTEND Internal Medicine Cardiovascular Disease
DX: I48.19 Other persistent atrial fibrillation (principal); I34.0 Nonrheumatic mitral (valve) insufficiency; I25.10 Atherosclerotic heart disease of native coronary artery without angina pectoris; I10 Essential (primary) hypertension; E78.5 Hyperlipidemia, unspecified; E11.9 Type 2 diabetes mellitus without complications; L40.9 Psoriasis, unspecified; F10.90 Alcohol use, unspecified, uncomplicated; Z79.01 Long term (current) use of anticoagulants; Z79.4 Long term (current) use of insulin; Z79.84 Long term (current) use of oral hypoglycemic drugs; Z79.899 Other long term (current) drug therapy; Z87.891 Personal history of nicotine dependence; Z82.49 Family history of ischemic heart disease and other diseases of the circulatory system
CPT/HCPCS: 93312; 93320; 93325; 92960; 93005; 80048; J2704

== ENCOUNTER 2023-10-30 06:08 | Day surgery (SDC) | payer MEDICARE, BC ==
[2023-10-30] MEDS ORDERED: LACTATED RINGERS 1,000 ML IV SCH (06:19)
[2023-10-30 06:59] LABS: Glucose,Whole Blood 126 mg/dL (70-110)
[2023-10-30 07:00] VITALS: RESP 16; TEMP 97
[2023-10-30 07:15] LABS: African American GFR (CKD) >90 (>60 ml/min/1.73 sqM); Anion Gap 9 mmol/L; Blood Urea Nitrogen 18 mg/dL (9-20); Calcium 9.3 mg/dL (8.4-10.2); Carbon Dioxide 21 mmol/L (22-30); Chloride 108 mmol/L (98-107); Glucose 135 mg/dL (74-99); Non-African American GFR(CKD) >90 (>60 ml/min/1.73 sqM); Sodium 138 mmol/L (137-145)
[2023-10-30 07:18] LABS: Potassium 4.7 mmol/L (3.5-5.1)
[2023-10-30] MEDS ORDERED: BENZOCAINE SPRAY 1 CAN TOPICAL ONE ×2 (07:27→07:31)
[2023-10-30] MEDS ORDERED: PROPOFOL 10 MG/ML 20 ML VIAL IV ONE (07:29)
[2023-10-30] MEDS ORDERED: LIDOCAINE 1% INJ 10MG/ML (20 ML MDV) ONE (07:29)
[2023-10-30 09:03] VITALS: BP 130/90; PULSE 88
--- NOTE | 2023-10-30 09:41 | ECHOT ---
TRANSESOPHAGEAL ECHOCARDIOGRAM INDICATION: Persistent atrial fibrillation. This is a 73-year-old gentleman with history of paroxysmal atrial fibrillation, who recently presented to us with atrial fibrillation with poorly controlled ventricular rate. He was advised to undergo PAO and cardioversion and presents to us for transesophageal echo prior to cardioversion. PROCEDURE NOTE: After obtaining informed consent, transesophageal echocardiogram was performed in left lateral position using an Omniplane probe. Local and IV sedation were obtained by the police judge. FINDINGS: 1. Left atrial appendage: There is an echodense lesion noted within the left atrial appendage consistent with thrombus. There is significant amount of spontaneous echo contrast noted within the left atrium. Left atrium appears enlarged. Right atrium and right ventricle appear mildly enlarged. 2. Left ventricle has normal size, shows diffuse global hypokinesis and hypokinetic inferior wall with mild LV systolic dysfunction with an ejection fraction of 45%. Mitral valve appears anatomically normal. There is mild central mitral regurgitation noted. There is mild tricuspid regurgitation noted. Aortic valve is free of stenosis or regurgitation. Aortic root appears normal. Interatrial septum, there is no evidence of svedk-ck-npex shunt with agitated saline contrast study with color-flow Doppler. There seem to be a small probe like patency with evidence of [id number]-[id number] shunt. I do not see an actual atrial septal defect. CONCLUSIONS: 1. Mild LV systolic dysfunction. 2. Evidence of left atrial appendage thrombus. PLAN: I am going to cancel the cardioversion at this time and continue with rate control and anticoagulation, make sure that the patient gets Eliquis without any further interruption. I will increase the dose of aspirin from 81 to 325. MMODL / IJN: [id number] /
== END 2023-10-30 09:06 | disposition home or self-care (01) ==
LOC: OR 06:08
PROVIDERS: ATTEND Internal Medicine Cardiovascular Disease
DX: I50.1 Left ventricular failure, unspecified (principal); I48.19 Other persistent atrial fibrillation; I25.10 Atherosclerotic heart disease of native coronary artery without angina pectoris; I10 Essential (primary) hypertension; E78.2 Mixed hyperlipidemia; E11.9 Type 2 diabetes mellitus without complications; F10.90 Alcohol use, unspecified, uncomplicated; Z79.01 Long term (current) use of anticoagulants; Z88.1 Allergy status to other antibiotic agents; Z87.891 Personal history of nicotine dependence; Z82.49 Family history of ischemic heart disease and other diseases of the circulatory system; Z79.84 Long term (current) use of oral hypoglycemic drugs
CPT/HCPCS: 93312; 93320; 93325; 80048; J2001; J2704

== ENCOUNTER 2024-01-08 09:12 | Day surgery (SDC) | payer MEDICARE, BC ==
[~2024-01-08 09:12] MED LIST: SODIUM CHLORIDE 0.9% 1,000 ML IV SCH
[2024-01-08 10:05] VITALS: TEMP 97.4
[2024-01-08] MEDS: LACTATED RINGERS 1,000 ML IV ONE (10:07)
[2024-01-08] MEDS ORDERED: LIDOCAINE 1% INJ 10MG/ML (20 ML MDV) ONE (10:18)
[2024-01-08] MEDS ORDERED: PROPOFOL 10 MG/ML 20 ML VIAL IV ONE (10:18)
[2024-01-08 10:19] LABS: African American GFR (CKD) >90 (>60 ml/min/1.73 sqM); Anion Gap 9 mmol/L; Blood Urea Nitrogen 16 mg/dL (9-20); Calcium 9.5 mg/dL (8.4-10.2); Carbon Dioxide 20 mmol/L (22-30); Chloride 112 mmol/L (98-107); Glucose 165 mg/dL (74-99); Non-African American GFR(CKD) >90 (>60 ml/min/1.73 sqM); Sodium 141 mmol/L (137-145)
[2024-01-08] MEDS: BENZOCAINE SPRAY 1 CAN TOPICAL ONE (10:30)
[2024-01-08 11:07] VITALS: RESP 16
--- NOTE | 2024-01-08 11:30 | ECHOT ---
TRANSESOPHAGEAL ECHOCARDIOGRAM INDICATIONS: Persistent atrial fibrillation to rule out intracardiac thrombus. PROCEDURE NOTE: After obtaining informed consent, transesophageal echocardiogram was performed in left lateral position using an Omniplane probe. Local and IV sedation were obtained by the loss control engineer. The patient tolerated the procedure well without any obvious immediate complication. FINDINGS: 1. There is no intracardiac thrombus within the left atrial appendage, left atrium, right atrium, and right ventricle. Left ventricle has normal size and systolic function. There is no left ventricular thrombus. 2. Mitral valve appears anatomically normal. There is vrzv-hy-vdpeqafz central mitral regurgitation noted. There is mild tricuspid regurgitation noted. Aortic valve is a 3-leaflet valve. There is no evidence of aortic stenosis or regurgitation. 3. Interatrial septum, there is no evidence of njru-sv-voxue shunt by color-flow Doppler or qknet-pi-tatn shunt by agitated saline contrast study. CONCLUSIONS: No intracardiac thrombus. PLAN: Patient will undergo cardioversion. MMODL / IJN: [id number] /
[2024-01-08 11:33] LABS: Glucose,Whole Blood 135 mg/dL (70-110)
[2024-01-08] MEDS: APIXABAN 5 MG TAB PO SCH (11:40)
[2024-01-08 12:05] VITALS: BP 111/70; PULSE 87
--- NOTE | 2024-01-08 14:34 | PCN ---
PROCEDURE NOTE PROCEDURE PERFORMED: Cardioversion. INDICATIONS: Persistent atrial fibrillation. PROCEDURE: The patient underwent transesophageal echo, intracardiac thrombus was ruled out. He has been anticoagulated with Eliquis and underwent cardioversion with synchronized DC shock with synchronized DC current. He was shocked once with 150 joules and then with 200 and he converted to sinus with 200 joules. He will continue with the Eliquis. The patient will get his dose of Eliquis this morning. MMODL / IJN: [id number] /
== END 2024-01-08 12:04 | disposition home or self-care (01) ==
LOC: OR 09:12
PROVIDERS: ATTEND Internal Medicine Cardiovascular Disease
DX: I08.1 Rheumatic disorders of both mitral and tricuspid valves (principal); I48.19 Other persistent atrial fibrillation; I25.10 Atherosclerotic heart disease of native coronary artery without angina pectoris; E11.9 Type 2 diabetes mellitus without complications; E78.5 Hyperlipidemia, unspecified; I10 Essential (primary) hypertension; Z79.82 Long term (current) use of aspirin; Z79.01 Long term (current) use of anticoagulants; Z88.1 Allergy status to other antibiotic agents; Z79.899 Other long term (current) drug therapy; Z87.891 Personal history of nicotine dependence
CPT/HCPCS: 93312; 93320; 93325; 92960; 80048; J2001; J2704